=== PATIENT | female | born 1940 | race African-American/Black ===

== ENCOUNTER 2016-07-18 00:49 | Emergency (ER) | payer MEDICARE ==
[~2016-07-18] VITALS: Ht 170.2 cm; Wt 90.7 kg
[2016-07-18 02:22] LABS: BILIRUBIN,URINE NEGATIVE (NEG); GLUCOSE,URINE NEGATIVE (NEG); NITRITE,URINE POSITIVE (NEG); PH,URINE 6.5; PROTEIN,URINE 30 mg/dL (NEG-TRACE)
[2016-07-18 02:43] LABS: BACTERIA,URINE FEW /HPF (0-FEW); SQUAMOUS EPITHELIAL CELL,UR MANY /LPF; WBC,URINE TNTC /HPF (0-4)
[2016-07-18] MEDS ORDERED: CEFTRIAXONE 1GM IVPB FOR OMNI 50 ML IV ONE (02:45)
[2016-07-18] MEDS ORDERED: LEVO750T31 PO (02:58)
--- NOTE | 2016-07-18 02:58 | PHYS DOC ---
Past Medical History Past Medical History: Hypertension, Other Additional Past Medical Histor: Edema, poor historian, CELLULITIS Past Surgical History: Lumbar Laminectomy Alcohol Use: None Drug Use: None Adult General Chief Complaint Chief Complaint: ABDOMINAL PAIN HPI HPI Patient is a 75 year old female who presents with complaint of lower abdominal pain and dysuria. Patient states her symptoms started this morning and have been present throughout the day. Patient states that she feels she may have urinary tract infection as she had similar symptoms with her previous episode of urinary tract infection. Patient denies any fevers, chest pain, shortness of breath, or any other symptoms at this time. The patient stated that she wanted to come to the emergency department because she feels that she has urinary tract infection and she wanted to be evaluated and treated at this time. Review of Systems Review of Systems Constitutional: Denies fever or chills [] Eyes: Denies change in visual acuity, redness, or eye pain [] HENT: Denies nasal congestion or sore throat [] Respiratory: Denies cough or shortness of breath [] Cardiovascular: No additional information not addressed in HPI [] GI: Lower abdominal pain, denies nausea, vomiting, bloody stools or diarrhea [] : Dysuria [] Musculoskeletal: Denies back pain or joint pain [] Integument: Denies rash or skin lesions [] Neurologic: Denies headache, focal weakness or sensory changes [] Endocrine: Denies polyuria or polydipsia [] Current Medications Current Medications Current Medications Medications (Trade) Dose Ordered Sig/Kp Start Time Stop Time Status Last Admin Dose Admin Ceftriaxone Sodium (Rocephin 1gm Ivpb For Omni) 50 ml @ 100 mls/hr 1X ONCE 07/18/16 02:45 07/18/16 03:14 UNV Allergies Allergies Allergies Coded Allergies Type Severity Reaction Last Updated Verified Penicillins Allergy Intermediate 10/12/13 Yes Physical Exam Physical Exam Constitutional: Alert, afebrile, no acute distress. [] HENT: Normocephalic, atraumatic, bilateral external ears normal, oropharynx moist, no oral exudates, nose normal. [] Eyes: PERRLA, EOMI, conjunctiva normal, no discharge. [] Neck: Normal range of motion, no tenderness, supple, no stridor. [] Cardiovascular:Heart rate regular rhythm, no murmur [] Lungs & Thorax: Bilateral breath sounds clear to auscultation [] Abdomen: Bowel sounds normal, soft, no tenderness, no masses, no pulsatile masses. [] Skin: Warm, dry, no erythema, no rash. [] Back: No tenderness, no CVA tenderness. [] Extremities: No tenderness, no cyanosis, no clubbing, no edema. [] Neurologic: Alert and oriented X 3, normal motor function, normal sensory function, no focal deficits noted. [] Current Patient Data Vital Signs Vital Signs Date Time Temp Pulse Resp B/P Pulse Ox O2 Delivery O2 Flow Rate FiO2 07/18/16 00:50 99.0 76 20 122/75 94 Room Air 99.0 Lab Values Laboratory Tests Test 07/18/16 01:05 Urine Collection Type U cath Urine Color Yellow Urine Clarity Turbid Urine pH 6.5 Urine Specific [place] 1.015 Urine Protein 30mg/dL (NEG-TRACE) Urine Glucose (UA) Negativemg/dL (NEG) Urine Ketones (Stick) Negativemg/dL (NEG) Urine Blood Large (NEG) Urine Nitrite Positive (NEG) Urine Bilirubin Negative (NEG) Urine Urobilinogen Dipstick 1.0mg/dL (0.2 mg/dL) Urine Leukocyte Esterase Large (NEG) Urine RBC 1-2/HPF (0-2) Urine WBC Tntc/HPF (0-4) Urine Squamous Epithelial Cells Many/LPF Urine Bacteria Few/HPF (0-FEW) EKG EKG Not performed [] Radiology/Procedures Radiology/Procedures Not performed [] Course & Med Decision Making Course & Med Decision Making Pertinent Labs and Imaging studies reviewed. (See chart for details) Patient's vital signs are stable. The patient was found have evidence of urinary tract infection. Patient given a dose of Rocephin in the emergency department. Patient will be continued on a seven-day course of Levaquin for treatment and advised follow-up in 4-5 days a primary doctor if symptoms are not improving. Advised return emergency department for any worsening symptoms. Patient voiced understanding and in agreement with treatment plan. Dragon Disclaimer Dragon Disclaimer This electronic medical record was generated, in whole or in part, using a voice recognition dictation system. Departure Departure Impression: Primary Impression: Urinary tract infection Disposition: HOME, SELF-CARE Condition: IMPROVED Referrals: GALINA JOHNSON MD (PCP) Patient Instructions: Urinary Tract Infection Additional Instructions: Follow-up with your right [facility] doctor in 4-5 days. Return to the emergency department for any worsening symptoms. Scripts Levofloxacin (Levaquin)750 Mg Tablet1 Tab PO DAILY #7 TAB Prov:FANY NOYOLA MD 07/18/16 Problem Qualifiers Primary Impression: Urinary tract infection Urinary tract infection type: site unspecified Hematuria presence: without hematuria Qualified Code: N39.0 - Urinary tract infection, site not specified FANY NOYOLA MD Jul 18, 2016 02:58
[2016-07-18 03:00] VITALS: BP 131/63
--- NOTE | 2016-07-20 16:21 | VNOTE ---
CALL BACK NOTE CALL BACK Microbiology 07/18/16 Urine Culture - Final, Complete 07/18/16 Urine Culture Result 1 (EFREN) - Final, Complete 07/18/16 Antimicrobic Susceptibility - Final, Complete Patient was discharged on Levaquin, urine culture shows she is resistant to it, I attempted to call patient phone is out of service. We'll give information to the batch and furnace manager to contact patient ALAINA GORMAN CATIE Jul 20, 2016 16:21
== END 2016-07-18 03:41 | disposition home or self-care (01) ==
LOC: ER 00:49
DX: N39.0 Urinary tract infection, site not specified (principal); I10 Essential (primary) hypertension; Z88.0 Allergy status to penicillin
CPT/HCPCS: 81001; 87086; 87186; 96365; 99284; J0690

== ENCOUNTER 2017-05-25 09:55 | Emergency (ER) | payer MEDICARE, OTHER ==
[2017-05-25] MEDS: KETOROLAC 60 MG/2 ML INJ. IM ×2 (10:18)
[2017-05-25 10:53] LABS: INFLUENZA A PATIENT NEGATIVE (NEGATIVE); INFLUENZA B PATIENT NEGATIVE (NEGATIVE); OBC FLU VALID
== END 2017-05-25 12:10 | disposition home or self-care (01) ==
LOC: ER 09:55
DX: J06.9 Acute upper respiratory infection, unspecified (principal); I10 Essential (primary) hypertension; Z88.0 Allergy status to penicillin; Z91.041 Radiographic dye allergy status
CPT/HCPCS: 70450; 87804; 87804-59; 96372; 99285-25; J1885

== ENCOUNTER 2017-08-05 15:40 | Inpatient (IN) | payer MEDICARE, OTHER ==
[2017-08-05] MEDS ORDERED: VANCOMYCIN PER PHARMACY MC (16:00)
[2017-08-05] MEDS ORDERED: CEFEPIME HCL 2 GM in IV NORMAL SALINE 100ML 100 ML IV (16:00)
[2017-08-05] MEDS ORDERED: BISACODYL 5 MG TABLET.DR. PO (16:15)
[2017-08-05] MEDS ORDERED: BISACODYL 10 MG SUPP.RECT. PR (16:15)
[2017-08-05] MEDS ORDERED: MAGNESIUM HYDROXIDE 2,400 MG/30 ML ORAL.SUSP. PO ×2 (16:15)
[2017-08-05] MEDS ORDERED: PROCHLORPERAZINE 10 MG/2 ML VIAL. IV (16:15)
[2017-08-05] MEDS ORDERED: PROCHLORPERAZINE 25 MG SUPP.RECT. PR (16:15)
[2017-08-05] MEDS ORDERED: CALCIUM CARBONATE 500 MG TAB.CHEW PO (16:15)
[2017-08-05] MEDS ORDERED: CAFFEINE PO (16:15)
[2017-08-05] MEDS ORDERED: ONDANSETRON PF 4 MG/2 ML VIAL. IV (16:15)
[2017-08-05] MEDS ORDERED: MAG HYDROX/ALUMINUM HYD/SIMETH 30 ML ORAL.SUSP PO (16:15)
[2017-08-05] MEDS ORDERED: ASPIRIN PO (16:15)
[2017-08-05 16:18] LABS: BILIRUBIN,URINE NEGATIVE (NEG); CLARITY,URINE TURBID; COLOR,URINE YELLOW; GLUCOSE,URINE NEGATIVE (NEG); NITRITE,URINE POSITIVE (NEG); PROTEIN,URINE 30 mg/dL (NEG-TRACE); UROBILINOGEN,URINE 0.2 mg/dL (0.2 mg/dL)
[2017-08-05 16:21] LABS: ADD MAN DIFF? NO
[2017-08-05] MEDS: IV NORMAL SALINE 1000ML BAG 1,860 ML IV (16:25)
[2017-08-05] MEDS: CEFEPIME HCL IV Push 2 GM VIAL. IVP (16:26)
[2017-08-05] MEDS: VANCOMYCIN 2 GM in IV 1/2 NORMAL SALINE 500 ML IV (16:26)
[2017-08-05 16:29] LABS: BACTERIA,URINE MODERATE /HPF (0-FEW); HYALINE CASTS, URINE MODERATE /HPF; RBC,URINE FOBS /HPF (0-2); SQUAMOUS EPITHELIAL CELL,UR MOD /LPF; WBC,URINE TNTC /HPF (0-4)
[2017-08-05 16:32] LABS: INR 1.2 (0.8-1.1); PARTIAL THROMBOPLASTIN TIME 37 SEC (24-38); PROTHROMBIN TIME PATIENT 14.3 SEC (11.7-14.0)
[2017-08-05 16:33] LABS: ANION GAP 8 (6-14); BLOOD UREA NITROGEN 17 mg/dL (7-20); BUN/CREATININE RATIO 15 (6-20); CALCIUM 8.4 mg/dL (8.5-10.1); CARBON DIOXIDE 26 mmol/L (21-32); CHLORIDE 102 mmol/L (98-107); CREATININE 1.1 mg/dL (0.6-1.0); GFR 58.3; GLUCOSE 149 mg/dL (70-99); SODIUM 136 mmol/L (136-145)
[2017-08-05 16:34] LABS: BASO # 0.1 x10^3/uL (0.0-0.2); BASO % 1 % (0-3); EOS % 0 % (0-3); HEMATOCRIT 32.5 % (36.0-47.0); HEMOGLOBIN 10.5 g/dL (12.0-15.5); LYMPH # 1.6 x10^3/uL (1.0-4.8); LYMPH % 11 % (24-48); MEAN CORPUSCULAR HEMOGLOBIN 28 pg (25-35); MEAN CORPUSCULAR HGB CONC 32 g/dL (31-37); MEAN CORPUSCULAR VOLUME 87 fL (79-100); MONO # 1.5 x10^3/uL (0.0-1.1); MONO % 10 % (0-9); NEUT # 11.5 x10^3uL (1.8-7.7); NEUT % 79 % (31-73); PLATELET COUNT 301 x10^3/uL (140-400); RED BLOOD COUNT 3.76 x10^6/uL (3.50-5.40); RED CELL DISTRIBUTION WIDTH 17.2 % (11.5-14.5); WHITE BLOOD COUNT 14.7 x10^3/uL (4.0-11.0)
[2017-08-05 16:39] LABS: ALBUMIN/GLOBULIN RATIO 0.7 (1.0-1.7); ALK PHOS 130 U/L (46-116); ALT (SGPT) 17 U/L (14-59); AST (SGOT) 29 U/L (15-37); TOTAL BILIRUBIN 0.4 mg/dL (0.2-1.0); TOTAL PROTEIN 7.2 g/dL (6.4-8.2)
[2017-08-05 16:40] LABS: POTASSIUM 5.6 mmol/L (3.5-5.1)
[2017-08-05] MEDS: IV NORMAL SALINE 1000ML BAG 1,000 ML IV ×2 (16:45→17:18)
[2017-08-05 16:57] LABS: LACTIC ACID 1.5 mmol/L (0.4-2.0)
[2017-08-05] MEDS ORDERED: ZINC OXIDE 20% TOPICAL OINTMENT 28GM TUBE. TP (17:15)
[2017-08-05] MEDS: MORPHINE SULFATE 4 MG/ML DISP.SYRIN. IV (17:26)
[2017-08-05] MEDS: VANCOMYCIN PER PHARMACY MC (18:12)
[2017-08-05] MEDS ORDERED: ASA/APAP/CAFFEINE 250/250/65MG TABLET. PO (18:15)
[2017-08-05] MEDS: oxyCODONE IR 5 MG TABLET PO (19:36)
[2017-08-05] MEDS: ACETAMINOPHEN 325 MG TABLET. PO (19:41)
[2017-08-05] MEDS: CYCLOBENZAPRINE 10 MG TABLET. PO (20:59)
[2017-08-05] MEDS: ALPRAZolam 0.25 MG TABLET PO (20:59)
[2017-08-05] MEDS: GABAPENTIN 300 MG CAPSULE. PO (20:59)
[2017-08-05] MEDS: TAMSULOSIN 0.4 MG CAP.ER.24H. PO (20:59)
[2017-08-05] MEDS: ENOXAPARIN 40 MG/0.4 ML SYRINGE. SQ (20:59)
[2017-08-05] MEDS ORDERED: NON FORMULARY ITEM (Gabapentin 800 MG) PO (21:00)
[2017-08-06] MEDS: oxyCODONE IR 5 MG TABLET PO ×4 (00:49→17:01)
[2017-08-06] MEDS: POLYETHYLENE GLYCOL 3350 17 GM PACKET. PO (09:06)
[2017-08-06] MEDS: busPIRone 5 MG TABLET. PO (09:07)
[2017-08-06] MEDS: GABAPENTIN 300 MG CAPSULE. PO ×3 (09:07→20:49)
[2017-08-06] MEDS: FAMOTIDINE 20 MG TABLET. PO (09:08)
[2017-08-06] MEDS: SENNOSIDES/DOCUSATE 8.6/50MG TABLET. PO (09:08)
[2017-08-06] MEDS: FUROSEMIDE 40 MG TABLET. PO (09:08)
[2017-08-06] MEDS: MEROPENEM 1 GM in IV NORMAL SALINE 100ML 100 ML IV ×3 (09:09→20:55)
[2017-08-06] MEDS: VANCOMYCIN 1.5 GM in IV 1/2 NORMAL SALINE 500 ML IV (17:01)
[2017-08-06] MEDS: ACETAMINOPHEN 325 MG TABLET. PO (17:49)
[2017-08-06] MEDS ORDERED: IBUPROFEN 400 MG TABLET. PO (19:00)
[2017-08-06] MEDS: LACTOBACILLUS RHAMNOSUS GG 1 CAPSULE. PO (20:49)
[2017-08-06] MEDS: ALPRAZolam 0.25 MG TABLET PO (20:50)
[2017-08-06] MEDS: CYCLOBENZAPRINE 10 MG TABLET. PO (20:50)
[2017-08-06] MEDS: TAMSULOSIN 0.4 MG CAP.ER.24H. PO (20:50)
[2017-08-06] MEDS: ENOXAPARIN 40 MG/0.4 ML SYRINGE. SQ (20:54)
[2017-08-07] MEDS: ACETAMINOPHEN 325 MG TABLET. PO (03:58)
[2017-08-07] MEDS: MEROPENEM 1 GM in IV NORMAL SALINE 100ML 100 ML IV ×3 (05:29→23:59)
[2017-08-07] MEDS: oxyCODONE IR 5 MG TABLET PO ×4 (05:34→20:02)
[2017-08-07 09:29] LABS: ADD MAN DIFF? YES; BASO # 0.1 x10^3/uL (0.0-0.2); BASO % 1 % (0-3); EOS # 0.1 x10^3/uL (0.0-0.7); EOS % 1 % (0-3); HEMATOCRIT 26.8 % (36.0-47.0); LYMPH # 2.4 x10^3/uL (1.0-4.8); LYMPH % 17 % (24-48); MEAN CORPUSCULAR HEMOGLOBIN 29 pg (25-35); MEAN CORPUSCULAR HGB CONC 34 g/dL (31-37); MEAN CORPUSCULAR VOLUME 86 fL (79-100); MONO # 2.2 x10^3/uL (0.0-1.1); MONO % 15 % (0-9); NEUT # 9.6 x10^3uL (1.8-7.7); NEUT % 67 % (31-73); PLATELET COUNT 216 x10^3/uL (140-400); RED BLOOD COUNT 3.12 x10^6/uL (3.50-5.40); RED CELL DISTRIBUTION WIDTH 17.4 % (11.5-14.5); WHITE BLOOD COUNT 14.3 x10^3/uL (4.0-11.0)
[2017-08-07 09:36] LABS: ANION GAP 7 (6-14); BLOOD UREA NITROGEN 19 mg/dL (7-20); CALCIUM 7.7 mg/dL (8.5-10.1); CARBON DIOXIDE 28 mmol/L (21-32); CHLORIDE 104 mmol/L (98-107); CREATININE 1.1 mg/dL (0.6-1.0); GFR 58.3; GLUCOSE 107 mg/dL (70-99); POTASSIUM 3.6 mmol/L (3.5-5.1); SODIUM 139 mmol/L (136-145)
[2017-08-07] MEDS: FAMOTIDINE 20 MG TABLET. PO (09:52)
[2017-08-07] MEDS: SENNOSIDES/DOCUSATE 8.6/50MG TABLET. PO (09:52)
[2017-08-07] MEDS: busPIRone 5 MG TABLET. PO (09:52)
[2017-08-07] MEDS: GABAPENTIN 300 MG CAPSULE. PO ×2 (09:53→15:58)
[2017-08-07] MEDS: LACTOBACILLUS RHAMNOSUS GG 1 CAPSULE. PO (09:53)
[2017-08-07] MEDS: POLYETHYLENE GLYCOL 3350 17 GM PACKET. PO (09:53)
[2017-08-07] MEDS: FUROSEMIDE 40 MG TABLET. PO (09:53)
[2017-08-07] MEDS: VANCOMYCIN PER PHARMACY MC ×2 (11:03→16:38)
[2017-08-07 12:35] LABS: % BANDS 4 % (0-9); % LYMPHS 23 % (24-48); % MONOS 9 % (0-10); % SEGS 64 % (35-66)
[2017-08-07 12:36] LABS: ANISOCYTOSIS SLIGHT; PLT ESTIMATE ADEQUATE (ADEQUATE)
[2017-08-07 16:27] LABS: VANC TR 15.5 mcg/mL (10.0-20.0)
[2017-08-07] MEDS: VANCOMYCIN 1.5 GM in IV 1/2 NORMAL SALINE 500 ML IV (16:47)
[2017-08-07] MEDS: ALPRAZolam 0.25 MG TABLET PO (20:06)
[2017-08-08] MEDS: TAMSULOSIN 0.4 MG CAP.ER.24H. PO ×2 (00:01→21:21)
[2017-08-08] MEDS: CYCLOBENZAPRINE 10 MG TABLET. PO ×2 (00:02→21:22)
[2017-08-08] MEDS: GABAPENTIN 300 MG CAPSULE. PO ×4 (00:02→21:21)
[2017-08-08] MEDS: LACTOBACILLUS RHAMNOSUS GG 1 CAPSULE. PO ×3 (00:02→21:21)
[2017-08-08] MEDS: ENOXAPARIN 40 MG/0.4 ML SYRINGE. SQ ×2 (00:04→21:24)
[2017-08-08] MEDS: oxyCODONE IR 5 MG TABLET PO ×4 (05:27→17:21)
[2017-08-08] MEDS: MEROPENEM 1 GM in IV NORMAL SALINE 100ML 100 ML IV ×2 (05:35→11:46)
[2017-08-08 05:43] LABS: ANION GAP 9 (6-14); BLOOD UREA NITROGEN 16 mg/dL (7-20); CARBON DIOXIDE 25 mmol/L (21-32); CHLORIDE 103 mmol/L (98-107); CREATININE 0.9 mg/dL (0.6-1.0); GFR 73.5; GLUCOSE 101 mg/dL (70-99); POTASSIUM 3.7 mmol/L (3.5-5.1); SODIUM 137 mmol/L (136-145)
[2017-08-08] MEDS: FUROSEMIDE 40 MG TABLET. PO (08:10)
[2017-08-08] MEDS: POLYETHYLENE GLYCOL 3350 17 GM PACKET. PO (08:10)
[2017-08-08] MEDS: busPIRone 5 MG TABLET. PO (08:10)
[2017-08-08] MEDS: SENNOSIDES/DOCUSATE 8.6/50MG TABLET. PO (08:10)
[2017-08-08] MEDS: FAMOTIDINE 20 MG TABLET. PO (08:10)
[2017-08-08 10:42] LABS: ADD MAN DIFF? NO
[2017-08-08 10:54] LABS: BASO % 0 % (0-3); EOS # 0.3 x10^3/uL (0.0-0.7); EOS % 3 % (0-3); HEMATOCRIT 27.2 % (36.0-47.0); LYMPH # 2.5 x10^3/uL (1.0-4.8); LYMPH % 24 % (24-48); MEAN CORPUSCULAR HEMOGLOBIN 28 pg (25-35); MEAN CORPUSCULAR HGB CONC 33 g/dL (31-37); MEAN CORPUSCULAR VOLUME 86 fL (79-100); MONO # 1.7 x10^3/uL (0.0-1.1); MONO % 16 % (0-9); NEUT # 5.8 x10^3uL (1.8-7.7); NEUT % 56 % (31-73); PLATELET COUNT 217 x10^3/uL (140-400); RED BLOOD COUNT 3.18 x10^6/uL (3.50-5.40); RED CELL DISTRIBUTION WIDTH 17.4 % (11.5-14.5); WHITE BLOOD COUNT 10.3 x10^3/uL (4.0-11.0)
[2017-08-08] MEDS ORDERED: MAGNESIUM HYDROXIDE 2,400 MG/30 ML ORAL.SUSP. PO (11:00)
[2017-08-08] MEDS: MAGNESIUM HYDROXIDE 2,400 MG/30 ML ORAL.SUSP. PO (11:45)
[2017-08-08] MEDS: DOCUSATE SODIUM 100 MG CAPSULE. PO (11:46)
[2017-08-08] MEDS: cefTRIAXone IV Push 1 GM VIAL. IVP (12:23)
[2017-08-08] MEDS: ALPRAZolam 0.25 MG TABLET PO (21:22)
[2017-08-09] MEDS: oxyCODONE IR 5 MG TABLET PO ×5 (06:00→17:30)
[2017-08-09] MEDS: POLYETHYLENE GLYCOL 3350 17 GM PACKET. PO (08:51)
[2017-08-09] MEDS: DOCUSATE SODIUM 100 MG CAPSULE. PO (08:54)
[2017-08-09] MEDS: LACTOBACILLUS RHAMNOSUS GG 1 CAPSULE. PO ×2 (08:54→21:30)
[2017-08-09] MEDS: GABAPENTIN 300 MG CAPSULE. PO ×3 (08:54→21:29)
[2017-08-09] MEDS: FAMOTIDINE 20 MG TABLET. PO (08:54)
[2017-08-09] MEDS: FUROSEMIDE 40 MG TABLET. PO (08:54)
[2017-08-09] MEDS: SENNOSIDES/DOCUSATE 8.6/50MG TABLET. PO (08:54)
[2017-08-09] MEDS: busPIRone 5 MG TABLET. PO (08:54)
[2017-08-09] MEDS ORDERED: POLYETHYLENE GLYCOL 3350 17 GM PACKET. PO (09:00)
[2017-08-09] MEDS ORDERED: CONTRAST GIVEN MC (11:30)
[2017-08-09] MEDS: IOHEXOL 300 MG/ML 100ML VIAL. IV (11:46)
[2017-08-09] MEDS: BENZOCAINE/MENTHOL LOZENGE. PO (13:24)
[2017-08-09] MEDS: cefTRIAXone IV Push 1 GM VIAL. IVP (13:26)
[2017-08-09] MEDS: TAMSULOSIN 0.4 MG CAP.ER.24H. PO (21:29)
[2017-08-09] MEDS: ALPRAZolam 0.25 MG TABLET PO (21:29)
[2017-08-09] MEDS: CYCLOBENZAPRINE 10 MG TABLET. PO (21:30)
[2017-08-09] MEDS: ENOXAPARIN 40 MG/0.4 ML SYRINGE. SQ (21:32)
[2017-08-10 03:54] LABS: HEMATOCRIT 29.3 % (36.0-47.0); HEMOGLOBIN 9.9 g/dL (12.0-15.5); MEAN CORPUSCULAR HEMOGLOBIN 29 pg (25-35); MEAN CORPUSCULAR HGB CONC 34 g/dL (31-37); MEAN CORPUSCULAR VOLUME 85 fL (79-100); PLATELET COUNT 268 x10^3/uL (140-400); RED BLOOD COUNT 3.44 x10^6/uL (3.50-5.40); RED CELL DISTRIBUTION WIDTH 17.3 % (11.5-14.5); WHITE BLOOD COUNT 9.6 x10^3/uL (4.0-11.0)
[2017-08-10 05:27] LABS: ALBUMIN 2.5 g/dL (3.4-5.0); ALBUMIN/GLOBULIN RATIO 0.6 (1.0-1.7); ALK PHOS 90 U/L (46-116); ALT (SGPT) 17 U/L (14-59); ANION GAP 9 (6-14); AST (SGOT) 13 U/L (15-37); BLOOD UREA NITROGEN 13 mg/dL (7-20); BUN/CREATININE RATIO 14 (6-20); CALCIUM 8.5 mg/dL (8.5-10.1); CARBON DIOXIDE 29 mmol/L (21-32); CHLORIDE 104 mmol/L (98-107); CREATININE 0.9 mg/dL (0.6-1.0); GFR 73.5; GLUCOSE 102 mg/dL (70-99); POTASSIUM 3.4 mmol/L (3.5-5.1); SODIUM 142 mmol/L (136-145); TOTAL BILIRUBIN 0.3 mg/dL (0.2-1.0)
[2017-08-10] MEDS: oxyCODONE IR 5 MG TABLET PO ×5 (06:00→23:55)
[2017-08-10] MEDS: DOCUSATE SODIUM 100 MG CAPSULE. PO (08:48)
[2017-08-10] MEDS: FUROSEMIDE 40 MG TABLET. PO (08:48)
[2017-08-10] MEDS: SENNOSIDES/DOCUSATE 8.6/50MG TABLET. PO (08:48)
[2017-08-10] MEDS: FAMOTIDINE 20 MG TABLET. PO (08:48)
[2017-08-10] MEDS: busPIRone 5 MG TABLET. PO (08:48)
[2017-08-10] MEDS: POLYETHYLENE GLYCOL 3350 17 GM PACKET. PO ×2 (08:49→20:13)
[2017-08-10] MEDS: GABAPENTIN 300 MG CAPSULE. PO ×3 (08:49→20:14)
[2017-08-10] MEDS: LACTOBACILLUS RHAMNOSUS GG 1 CAPSULE. PO ×2 (08:49→20:12)
[2017-08-10 11:08] LABS: BILIRUBIN,URINE NEGATIVE (NEG); CLARITY,URINE CLOUDY; COLOR,URINE YELLOW; GLUCOSE,URINE NEGATIVE (NEG); NITRITE,URINE NEGATIVE (NEG); PROTEIN,URINE NEGATIVE (NEG-TRACE)
[2017-08-10 11:34] LABS: SQUAMOUS EPITHELIAL CELL,UR MANY /LPF
[2017-08-10 11:35] LABS: WBC,URINE >40 /HPF (0-4)
[2017-08-10 11:37] LABS: BACTERIA,URINE FEW /HPF (0-FEW)
[2017-08-10] MEDS: cefTRIAXone IV Push 1 GM VIAL. IVP (13:54)
[2017-08-10] MEDS: IBUPROFEN 800 MG TABLET. PO (13:58)
[2017-08-10 14:01] LABS: RETIC COUNT 0.3 % (0.5-2.5)
[2017-08-10 14:01] LABS: % SAT IRON 12 % (15-34); IRON,SERUM 17 ug/dL (50-170)
[2017-08-10 14:44] LABS: VITAMIN-B12 332 pg/mL (247-911)
[2017-08-10 14:44] LABS: FOLATE 5.52 ng/ml (3.2-20.0)
[2017-08-10] MEDS: LUBIPROSTONE 8 MCG CAPSULE PO (17:04)
[2017-08-10] MEDS: POTASSIUM CHLORIDE 20 MEQ TABLET.ER. PO (17:04)
[2017-08-10] MEDS: ALPRAZolam 0.25 MG TABLET PO (20:12)
[2017-08-10] MEDS: TAMSULOSIN 0.4 MG CAP.ER.24H. PO (20:13)
[2017-08-10] MEDS: CYCLOBENZAPRINE 10 MG TABLET. PO (20:13)
[2017-08-10] MEDS: ENOXAPARIN 40 MG/0.4 ML SYRINGE. SQ (20:14)
[2017-08-11] MEDS: oxyCODONE IR 5 MG TABLET PO ×2 (04:25→11:56)
[2017-08-11] MEDS ORDERED: oxyCODONE IR 5 MG TABLET (05:30)
[2017-08-11] MEDS: LUBIPROSTONE 8 MCG CAPSULE PO (08:27)
[2017-08-11] MEDS: PANTOPRAZOLE 40 MG TABLET.DR. PO (08:28)
[2017-08-11] MEDS: IBUPROFEN 800 MG TABLET. PO (08:28)
[2017-08-11] MEDS: LACTOBACILLUS RHAMNOSUS GG 1 CAPSULE. PO (08:28)
[2017-08-11] MEDS: busPIRone 5 MG TABLET. PO (08:28)
[2017-08-11] MEDS: SENNOSIDES/DOCUSATE 8.6/50MG TABLET. PO (08:32)
[2017-08-11] MEDS: GABAPENTIN 300 MG CAPSULE. PO ×2 (08:32→13:43)
[2017-08-11] MEDS: DOCUSATE SODIUM 100 MG CAPSULE. PO (08:32)
[2017-08-11] MEDS: POLYETHYLENE GLYCOL 3350 17 GM PACKET. PO (08:32)
[2017-08-11] MEDS: FUROSEMIDE 40 MG TABLET. PO (08:32)
[2017-08-11 09:54] LABS: ANION GAP 8 (6-14); BLOOD UREA NITROGEN 14 mg/dL (7-20); CALCIUM 8.7 mg/dL (8.5-10.1); CARBON DIOXIDE 29 mmol/L (21-32); CHLORIDE 104 mmol/L (98-107); CREATININE 0.8 mg/dL (0.6-1.0); GFR 84.2; GLUCOSE 116 mg/dL (70-99); POTASSIUM 3.7 mmol/L (3.5-5.1); SODIUM 141 mmol/L (136-145)
[2017-08-11] MEDS: cefTRIAXone IV Push 1 GM VIAL. IVP (13:41)
[2017-08-12] MEDS ORDERED: CEFPODOXIME PROXETIL 100 MG TABLET. PO (09:00)
== END 2017-08-11 16:00 | disposition home or self-care (01) | DRG 871 ==
LOC: 5 SOUTH 08-09 12:59 → ER 15:40 → 5 SOUTH 16:18
DX: A41.9 Sepsis, unspecified organism (principal); J96.20 Acute and chronic respiratory failure, unspecified whether with hypoxia or hypercapnia; N13.30 Unspecified hydronephrosis; N30.91 Cystitis, unspecified with hematuria; D64.9 Anemia, unspecified; B96.20 Unspecified Escherichia coli [E. coli] as the cause of diseases classified elsewhere; F17.210 Nicotine dependence, cigarettes, uncomplicated; G89.29 Other chronic pain; I10 Essential (primary) hypertension; I25.10 Atherosclerotic heart disease of native coronary artery without angina pectoris; K21.9 Gastro-esophageal reflux disease without esophagitis; Z79.891 Long term (current) use of opiate analgesic; Z82.49 Family history of ischemic heart disease and other diseases of the circulatory system; Z83.71 Family history of colonic polyps; Z86.14 Personal history of Methicillin resistant Staphylococcus aureus infection; Z87.440 Personal history of urinary (tract) infections; Z88.0 Allergy status to penicillin; F32.9 Major depressive disorder, single episode, unspecified; F41.9 Anxiety disorder, unspecified; M19.90 Unspecified osteoarthritis, unspecified site; K56.41 Fecal impaction; R33.9 Retention of urine, unspecified; Z71.89 Other specified counseling
CPT/HCPCS: 36415; 71045; 71260; 76770; 80048; 80053; 80202; 81001; 82607; 82746; 83540; 83550; 83605; 85007; 85025; 85027; 85045; 85610; 85730; 87040; 87086; 87186; 96365; 96375; 99291; 99291-25; J0692; J0696; J1650; J2185; J2270; J3370; J7030; Q9967

== ENCOUNTER 2018-01-23 15:17 | Inpatient (IN) | payer MEDICARE, OTHER ==
[~2018-01-23] VITALS: Ht 170.2 cm; Wt 87.1 kg
[~2018-01-23 15:17] MED LIST: ALPR0.25 PO; ASPI-493 PO; BISA-42 PR; BUSP5TAB PO; CEFP100T PO; CYCL5TAB PO; FURO40TA4 PO; GABA-585 PO; GABA600T2 PO; GABA800T2 PO; LACT1CAP19 PO; LEVO750T31 PO; MAGN400O7 PO; MENT3.5O TP; NITR100C62 PO; OXYC15TA PO; POLY17PO29 PO; RANI150T21 PO; SENN1TAB8 PO; TAMS0.4C2 PO
[2018-01-23] MEDS ORDERED: IV NORMAL SALINE 1000ML BAG 1,000 ML IV SCH (15:54)
[2018-01-23] MEDS ORDERED: ACETAMINOPHEN 500 MG TABLET PO ONE (16:00)
[2018-01-23 16:10] LABS: CALCIUM 8.8 mg/dL (8.5-10.1); CREATININE 1.2 mg/dL (0.6-1.0); GFR 52.6; POTASSIUM 3.7 mmol/L (3.5-5.1)
[2018-01-23 16:12] LABS: BASO # 0.1 x10^3/uL (0.0-0.2); BASO % 0 % (0-3); EOS % 0 % (0-3); HEMATOCRIT 37.3 % (36.0-47.0); HEMOGLOBIN 12.4 g/dL (12.0-15.5); LYMPH # 1.7 x10^3/uL (1.0-4.8); LYMPH % 11 % (24-48); MEAN CORPUSCULAR HEMOGLOBIN 27 pg (25-35); MEAN CORPUSCULAR HGB CONC 33 g/dL (31-37); MEAN CORPUSCULAR VOLUME 82 fL (79-100); MONO # 1.8 x10^3/uL (0.0-1.1); MONO % 11 % (0-9); NEUT # 12.5 x10^3uL (1.8-7.7); NEUT % 78 % (31-73); PLATELET COUNT 265 x10^3/uL (140-400); RED BLOOD COUNT 4.54 x10^6/uL (3.50-5.40); RED CELL DISTRIBUTION WIDTH 19.2 % (11.5-14.5); WHITE BLOOD COUNT 16.1 x10^3/uL (4.0-11.0)
[2018-01-23 16:12] LABS: BILIRUBIN,URINE NEGATIVE (NEG); CLARITY,URINE TURBID; COLOR,URINE YELLOW; NITRITE,URINE POSITIVE (NEG); PH,URINE 5.5; PROTEIN,URINE 30 mg/dL (NEG-TRACE)
--- NOTE | 2018-01-23 16:14 | PHYS DOC ---
Past Medical History Past Medical History: Anxiety, Arthritis, Constipation, Depression, GERD, Hypertension, Other Additional Past Medical Histor: Edema, chronic pain, CELLULITIS,hemorrhoids, pressure ulcer sacral stage 2 Past Surgical History: Lumbar Laminectomy Alcohol Use: None Drug Use: None Adult General HPI HPI Patient is a 77-year-old female who presents to the emergency department for evaluation, from her longterm. According to the nursing facility the patient has been less conversive than normal, and was found to have a fever of 103. This is confirmed upon arrival to the emergency department. The patient denies any pain. She does have a history of UTIs. She denies any headache, or neck pain. She is oriented to person, place, but disoriented to time. She is normally nonambulatory. She does have an ulcer on her right heel which has some malodorous drainage, as well as dressed sacral decubitus ulcer. Her urine is also foul-smelling, according to the nurse to catheterize the patient upon arrival. The patient has not had any cough or shortness of breath. She has not had any chest pain, nausea, vomiting, or diarrhea. There've been no reports of black or bloody stools. There are no alleviating or exacerbating factors to the patient's symptoms. Review of Systems Review of Systems Constitutional: Patient reports fever, decreased mental status according to the nursing facility[] Eyes: Denies change in visual acuity, redness, or eye pain [] HENT: Denies nasal congestion or sore throat [] Respiratory: Denies cough or shortness of breath [] Cardiovascular:The patient denies any shortness of breath, chest pain, palpitations, or orthopnea [] GI: Denies abdominal pain, nausea, vomiting, bloody stools or diarrhea [] : Denies dysuria or hematuria [] Musculoskeletal: Denies back pain or joint pain [] Integument: Denies rash or skin lesions, except as noted in the history of present illness [] Neurologic: Denies headache, new focal weakness or sensory changes [] Endocrine: Denies polyuria or polydipsia [] All other systems were reviewed and found to be within normal limits, except as documented in this note. Current Medications Current Medications Current Medications Medications (Trade) Dose Ordered Sig/Kp Start Time Stop Time Status Last Admin Dose Admin Acetaminophen (Tylenol) 1,000 mg 1X ONCE 01/23/18 16:00 01/23/18 16:01 DC 01/23/18 16:25 1,000 MG Ciprofloxacin/ Dextrose 200 ml @ 200 mls/hr 1X ONCE 01/23/18 16:15 01/23/18 17:14 01/23/18 16:26 200 MLS/HR Meropenem 1 gm/ Sodium Chloride 100 ml @ 200 mls/hr 1X ONCE 01/23/18 16:15 01/23/18 16:44 DC Sodium Chloride 1,000 ml @ 100 mls/hr Q10H 01/23/18 15:54 01/24/18 01:53 01/23/18 16:25 100 MLS/HR Vancomycin HCl 250 ml @ 250 mls/hr 1X ONCE 01/23/18 16:15 01/23/18 17:14 UNV Vancomycin HCl 2 gm/Sodium Chloride 500 ml @ 250 mls/hr 1X ONCE 01/23/18 16:15 01/23/18 18:14 Allergies Allergies Allergies Coded Allergies Type Severity Reaction Last Updated Verified Penicillins Allergy Intermediate HAS TOLERATED CEFTRIAXONE 08/05/17 Yes I S O L A T I O N *CONTACT* Allergy Unknown 07/21/16 Yes Physical Exam Physical Exam PHYSICAL EXAM: CONSTITUTIONAL: Well developed, well nourished HEAD: normocephalic, atraumatic EENT: PERRL, EOMI. Conjunctivae normal color, sclerae non-icteric; moist mucous membranes. NECK: Supple, non-tender; no meningismus. LUNGS: Lungs CTA, breathing even and unlabored. Normal air movement. HEART: Regular rate and rhythm, no murmur CHEST: No deformity; non-tender ABDOMEN: The abdomen is soft, and non-tender, no masses or bruits. EXTREM: Normal ROM; no deformity, no calf tenderness. Normal pulses palpable in all extremities. There is 2+ bilateral pitting pedal edema. SKIN: There is a half dollar sized decubitus ulcer on the right medial/inferior heel. There is malodorous discharge/exudate present. There is also a stage I decubitus ulcer on the tongue, which is dressed. No other rash; no diaphoresis NEURO: Alert; normal speech and cognition; CN's grossly intact; upper extremity strength grossly intact without focal deficit. There is significant weakness to the lower extremities bilaterally. The patient states she is not ambulatory normally. BACK: No CVA TTP. Current Patient Data Vital Signs Vital Signs Date Time Temp Pulse Resp B/P (MAP) Pulse Ox O2 Delivery O2 Flow Rate FiO2 01/23/18 15:17 103.1 106 20 136/68 (90) 96 Room Air 103.1 Lab Values Laboratory Tests Test 01/23/18 15:35 01/23/18 15:50 Urine Collection Type U cath Urine Color Yellow Urine Clarity Turbid Urine pH 5.5 Urine Specific [place] 1.015 Urine Protein 30 mg/dL (NEG-TRACE) Urine Glucose (UA) Negative mg/dL (NEG) Urine Ketones (Stick) Negative mg/dL (NEG) Urine Blood Moderate (NEG) Urine Nitrite Positive (NEG) Urine Bilirubin Negative (NEG) Urine Urobilinogen Dipstick 1.0 mg/dL (0.2 mg/dL) Urine Leukocyte Esterase Large (NEG) Urine RBC 1-2 /HPF (0-2) Urine WBC Tntc /HPF (0-4) Urine Squamous Epithelial Cells Few /LPF Urine Bacteria Many /HPF (0-FEW) Lactic Acid Level 1.0 mmol/L (0.4-2.0) White Blood Count 16.1 x10^3/uL (4.0-11.0) H Red Blood Count 4.54 x10^6/uL (3.50-5.40) Hemoglobin 12.4 g/dL (12.0-15.5) Hematocrit 37.3 % (36.0-47.0) Mean Corpuscular Volume 82 fL (79-100) Mean Corpuscular Hemoglobin 27 pg (25-35) Mean Corpuscular Hemoglobin Concent 33 g/dL (31-37) Red Cell Distribution Width 19.2 % (11.5-14.5) H Platelet Count 265 x10^3/uL (140-400) Neutrophils (%) (Auto) 78 % (31-73) H Lymphocytes (%) (Auto) 11 % (24-48) L Monocytes (%) (Auto) 11 % (0-9) H Eosinophils (%) (Auto) 0 % (0-3) Basophils (%) (Auto) 0 % (0-3) Neutrophils # (Auto) 12.5 x10^3uL (1.8-7.7) H Lymphocytes # (Auto) 1.7 x10^3/uL (1.0-4.8) Monocytes # (Auto) 1.8 x10^3/uL (0.0-1.1) H Eosinophils # (Auto) 0.0 x10^3/uL (0.0-0.7) Basophils # (Auto) 0.1 x10^3/uL (0.0-0.2) Sodium Level 141 mmol/L (136-145) Potassium Level 3.7 mmol/L (3.5-5.1) Chloride Level 102 mmol/L (98-107) Carbon Dioxide Level 28 mmol/L (21-32) Anion Gap 11 (6-14) Blood Urea Nitrogen 15 mg/dL (7-20) Creatinine 1.2 mg/dL (0.6-1.0) H Estimated GFR (Cockcroft-Gault) 52.6 BUN/Creatinine Ratio 13 (6-20) Glucose Level 119 mg/dL (70-99) H Calcium Level 8.8 mg/dL (8.5-10.1) Total Bilirubin 0.5 mg/dL (0.2-1.0) Aspartate Amino Transferase (AST) 13 U/L (15-37) L Alanine Aminotransferase (ALT) 13 U/L (14-59) L Alkaline Phosphatase 139 U/L (46-116) H Total Protein 8.1 g/dL (6.4-8.2) Albumin 3.6 g/dL (3.4-5.0) Albumin/Globulin Ratio 0.8 (1.0-1.7) L Influenza Type A Antigen Negative (NEGATIVE) Influenza Type B Antigen Negative (NEGATIVE) Laboratory Tests 01/23/18 15:50 Laboratory Tests 01/23/18 15:50 EKG EKG [Normal sinus rhythm at a rate of 97 beats for minute, left axis deviation, normal intervals. There are no acute ischemic ST/T changes.] Radiology/Procedures Radiology/Procedures [PROCEDURE: PORTABLE CHEST 1V PORTABLE CHEST 1V Clinical Indication: FEVER, AMS Comparison: AP chest August 09, 2017. Findings: Atherosclerotic thoracic aorta. Cardiac size normal. Stable mild scarring in the lung bases. Lungs are otherwise clear. There is no pneumothorax. No pleural effusion is appreciated. Degenerative arthropathy of the shoulders. There is posterior fusion hardware of the cervical thoracic spine. IMPRESSION: No acute cardiopulmonary process. ] Course & Med Decision Making Course & Med Decision Making Pertinent Labs and Imaging studies reviewed. (See chart for details) [5:05 PM:The patient's condition remains stable. I spoke with the hospitalist , who accepted the patient to the hospital for further evaluation and treatment. Antibiotic coverage selected initially empirically, to cover for the possibility of pseudomonal infection on the heel.] Dragon Disclaimer Dragon Disclaimer This electronic medical record was generated, in whole or in part, using a voice recognition dictation system. Departure Departure Impression: Primary Impression: UTI (urinary tract infection) Additional Impressions: Sepsis Decubitus ulcer Disposition: ADMITTED INPATIENT Admitting Physician: Other (Riffel) Condition: STABLE Referrals: GALINA JOHNSON MD (PCP) Problem Qualifiers PAULINO SINGH MD Jan 23, 2018 16:14
[2018-01-23] MEDS ORDERED: CIPROFLOXACIN 400MG PREMIX 200 ML IV ONE (16:15)
[2018-01-23] MEDS ORDERED: MEROPENEM 1 GM in IV NORMAL SALINE 100ML 100 ML IV ONE (16:15)
[2018-01-23] MEDS ORDERED: VANCOMYCIN 2 GM in IV NORMAL SALINE 500ML BAG 500 ML IV ONE (16:15)
[2018-01-23] MEDS ORDERED: VANCOMYCIN 1GM IVPB FOR OMNI 250 ML IV ONE (16:15)
[2018-01-23 16:17] LABS: ALBUMIN 3.6 g/dL (3.4-5.0); ALBUMIN/GLOBULIN RATIO 0.8 (1.0-1.7); TOTAL BILIRUBIN 0.5 mg/dL (0.2-1.0); TOTAL PROTEIN 8.1 g/dL (6.4-8.2)
[2018-01-23 16:22] LABS: BACTERIA,URINE MANY /HPF (0-FEW); SQUAMOUS EPITHELIAL CELL,UR FEW /LPF; WBC,URINE TNTC /HPF (0-4)
[2018-01-23 16:25] LABS: INFLUENZA A PATIENT NEGATIVE (NEGATIVE); INFLUENZA B PATIENT NEGATIVE (NEGATIVE)
--- NOTE | 2018-01-23 16:59 | RAD ---
PORTABLE CHEST 1V Clinical Indication: FEVER, AMS Comparison: AP chest August 09, 2017. Findings: Atherosclerotic thoracic aorta. Cardiac size normal. Stable mild scarring in the lung bases. Lungs are otherwise clear. There is no pneumothorax. No pleural effusion is appreciated. Degenerative arthropathy of the shoulders. There is posterior fusion hardware of the cervical thoracic spine. IMPRESSION: No acute cardiopulmonary process. Electronically signed by: Gonzalo Diaz MD (01/23/2018 4:55 PM) [id number]
[2018-01-23 19:00] VITALS: BP 86/51
[2018-01-23] MEDS: traMADol 50 MG TABLET PO PRN (19:49)
[2018-01-23] MEDS ORDERED: IV RINGERS,LACTATED 1000ML 1,000 ML IV ONE (20:00)
[2018-01-23] MEDS: IV RINGERS,LACTATED 1000ML 1,000 ML IV SCH (21:27)
[2018-01-23 21:33] VITALS: BP 146/71
--- NOTE | 2018-01-23 22:43 | PDOC1 ---
History and Physical Date of Admission Date of Admission DATE: 01/23/18 TIME: 22:21 Identification/Chief Complaint Chief Complaint Fever Altered mental status Right heel ulcer Sacral decubitus ulcer Dysuria Source Source: Chart review, Patient History of Present Illness History of Present Illness 77-year-old female w/ PMHx mild dementia, mild COPD who presents to the emergency department from SNF. She has been somnolent and has a fever of 103. The patient denies any pain. She does have a history of UTIs and has LE, nitrites, blood and bacteria in UA in the ED. She denies any headache, or neck pain. She is oriented to person, place, but disoriented to time. Has been nonambulatory. ED staff noted an ulcer on her right heel which has some malodorous drainage, as well as dressed sacral decubitus ulcer. Denies cough or shortness of breath and CXR is nonspecific but she does require 2L O2 for desaturations into the 80s on room air. Her rapid influenza test was negative. She was noted with WBC 16.1, fever 103.1F, HR 106bpm. Lactate was 1 after IVF in the ED. She has not had any chest pain, nausea, vomiting, or diarrhea. There've been no reports of black or bloody stools. There are no alleviating or exacerbating factors to the patient's symptoms. She is admitted for sepsis, likely from right foot ulcer and UTI. Past Medical History Cardiovascular: HTN Pulmonary: No pertinent hx GI: No pertinent hx Heme/Onc: No pertinent hx Hepatobiliary: No pertinent hx Psych: No pertinent hx Rheumatologic: No pertinent hx, Other Infectious disease: Other Renal/: UTI Endocrine: No pertinent hx Past Surgical History Past Surgical History: No pertinent history Family History Family History: Hypertension Social History ALCOHOL: rare Drugs: None Current Problem List Problem List Problems Medical Problems: (1) Decubitus ulcer Status: Acute (2) Sepsis Status: Acute Current Medications Current Medications Current Medications Acetaminophen (Tylenol) 1,000 mg 1X ONCE PO Last administered on 01/23/18at 16 :25; Start 01/23/18 at 16:00; Stop 01/23/18 at 16:01; Status DC Sodium Chloride 1,000 ml @ 100 mls/hr Q10H IV Last administered on 01/23/18at 16:25; Start 01/23/18 at 15:54; Stop 01/23/18 at 19:50; Status DC Ciprofloxacin/ Dextrose 200 ml @ 200 mls/hr Q12HR IV ; Start 01/24/18 at 06:00 Meropenem 1 gm/ Sodium Chloride 100 ml @ 200 mls/hr Q12HR IV ; Start 01/24/18 at 06:00 Vancomycin HCl 250 ml @ 250 mls/hr 1X ONCE IV ; Start 01/23/18 at 16:15; Stop 01/23/18 at 17:14; Status UNV Ciprofloxacin/ Dextrose 200 ml @ 200 mls/hr 1X ONCE IV Last administered on 01/23/18at 16:26; Start 01/23/18 at 16:15; Stop 01/23/18 at 17:14; Status DC Meropenem 1 gm/ Sodium Chloride 100 ml @ 200 mls/hr 1X ONCE IV Last administered on 01/23/18at 17:45; Start 01/23/18 at 16:15; Stop 01/23/18 at 16 :44; Status DC Vancomycin HCl 2 gm/Sodium Chloride 500 ml @ 250 mls/hr 1X ONCE IV Last administered on 01/23/18at 18:47; Start 01/23/18 at 16:15; Stop 01/23/18 at 18 :14; Status DC Acetaminophen (Tylenol) 650 mg PRN Q6HRS PRN PO PAIN; Start 01/23/18 at 19:30 Tramadol HCl (Ultram) 50 mg PRN Q6HRS PRN PO PAIN Last administered on at 19:49; Start 01/23/18 at 19:30 Acetaminophen/ Hydrocodone Bitart (Lortab 5/325) 1 tab PRN Q6HRS PRN PO PAIN; Start 01/23/18 at 19:30 Ringer's Solution 1,000 ml @ 999 mls/hr 1X ONCE IV Last administered on 01/23at 19:53; Start 01/23/18 at 20:00; Stop 01/23/18 at 21:00; Status DC Ringer's Solution 1,000 ml @ 100 mls/hr Q10H IV Last administered on at 21:27; Start 01/23/18 at 21:00 Active Scripts Active Culturelle (Lactobacillus Rhamnosus Gg) 1 Each Cap.sprink 1 Cap PO BID 14 Days Cefpodoxime Proxetil 100 Mg Tablet 200 Mg PO BID 10 Days Reported Calmoseptine Ointment (Menthol/Zinc Oxide) 3.5 Gm Oint.pack 3.5 Gm TP TID PRN Dulcolax (Bisacodyl) 5 Mg Tablet.dr 10 Mg WI PRN DAILY PRN Anacin 400-32 Mg Tablet (Aspirin/Caffeine) 1 Each Tablet 1 Each PO Q6HRS PRN Milk Of Magnesia (Magnesium Hydroxide) 400 Mg/5 Ml Oral.susp 400 Mg PO DAILY PRN Cyclobenzaprine Hcl 5 Mg Tablet 1 Tab PO QHS Senna-Docusate Sodium Tablet (Sennosides/Docusate Sodium) 1 Each Tablet 1 Each PO DAILY Zantac (Ranitidine Hcl) 150 Mg Tablet 150 Mg PO DAILY Xanax (Alprazolam) 0.25 Mg Tablet 1 Tab PO HS Furosemide 40 Mg Tablet 1 Tab PO DAILY Miralax (Polyethylene Glycol 3350) 17 Gm Powd.pack 1 Packet PO DAILY Tamsulosin Hcl 0.4 Mg Cap.er.24h 0.4 Mg PO HS Gabapentin 600 Mg Tablet 600 Mg PO BID Gabapentin 100 Mg Capsule 100 Mg PO HS Buspirone Hcl 5 Mg Tablet 5 Mg PO DAILY Allergies Allergies: Coded Allergies: Penicillins (Verified Allergy, Intermediate, HAS TOLERATED CEFTRIAXONE, 08/05/17) I S O L A T I O N *CONTACT* (Verified Allergy, Unknown, 07/21/16) mrsa ROS Review of System Mostly unable to obtain clear history due to patient mental status General: YES: Chills, Fatigue, Malaise; No: Night Sweats, Appetite, Other PSYCHOLOGICAL ROS: YES: Behavioral Disorder; No: Anxiety, Concentration difficultie, Decreased libido, Depression, Disorientation, Hallucinations, Hostility, Irritablity, Memory difficulties, Mood Swings, Obsessive thoughts, Physical abuse, Sexual abuse, Sleep disturbances, Suicidal ideation, Other Eyes: No Blurry vision, No Decreased vision, No Double vision, No Dry eyes, No Excessive tearing, No Eye Pain, No Itchy Eyes, No Loss of vision, No Photophobia , No Scotomata, No Uses contacts, No Uses glasses, No Other HEENT: No: Heacaches, Visual Changes, Hearing change, Nasal congestion, Nasal discharge, Oral lesions, Sinus pain, Sore Throat, Epistaxis, Sneezing, Snoring, Tinnitus, Vertigo, Vocal changes, Other ALLERGY AND IMMUNOLOGY: No: Hives, Insect Bite Sensitivity, Itchy/Watery Eyes, Nasal Congestion, Post Nasal Drip, Seasonal Allergies, Other Hematological and Lymphatic: YES: Bleeding Problems; No: Blood Clots, Blood Transfusions, Brusing, Night Sweats, Pallor, Swollen Lymph Nodes, Other ENDOCRINE: No: Breast Changes, Galactorrhea, Hair Pattern Changes, Hot Flashes , Malaise/lethargy, Mood Swings, Palpitations, Polydipsia/polyuria, Skin Changes , Temperature Intolerance, Unexpected Weight Changes, Other Breast: No New/Changing Breast Lumps, No Nipple changes, No Nipple discharge, No Other Respiratory: No: Cough, Hemoptysis, Orthopnea, Pleuritic Pain, Shortness of breath, SOB with excertion, Sputum Changes, Stridor, Tachypnea, Wheezing, Other Cardiovascular: No Chest Pain, No Palpitations, No Orthopnea, No Paroxysmal Noc. Dyspnea, No Edema, No Lt Headedness, No Other Gastrointestinal: Yes Nausea Genitourinary: YES Dysuria, YES Frequency, YES Incontinence; No Hematuria, No Retention, No Discharge, No Urgency, No Pain, No Flank Pain , No Other, No , No , No , No , No , No , No Musculoskeletal: Yes Gait Disturbance; No Joint Pain, No Joint Stiffness, No Joint Swelling, No Muscle Pain, No Muscular Weakness, No Pain In:, No Swelling In:, No Other Neurological: Yes Behavorial Changes, Yes Confusion; No Bowel/Bladder ControlChng, No Dizziness, No Gait Disturbance, No Headaches , No Impaired Coord/balance, No Memory Loss, No Numbness/Tingling, No Seizures, No Speech Problems, No Tremors, No Visual Changes, No Weakness, No Other Skin: Yes Rash; No Dry Skin, No Eczema, No Hair Changes, No Lumps, No Mole Changes, No Mottling, No Nail Changes, No Pruritus, No Skin Lesion Changes, No Other, No Acne Physical Exam General: Alert, Cooperative, mild distress HEENT: Atraumatic, PERRLA, EOMI, Mucous membr. moist/pink Lungs: Other (Scattered wheezing) Heart: S1S2, RRR, no murmurs Abdomen: Normal bowel sounds, Soft, No tenderness, No hepatosplenomegaly, No masses Extremities: No clubbing, No cyanosis, No edema, Normal pulses, No tenderness/ swelling, Other (Right heel with foul smelling ulcer) Skin: Other (Right heel ulcer as above and stage 1 decubitus ulcer on sacrm) Vitals Vitals Vital Signs Date Time Temp Pulse Resp B/P (MAP) Pulse Ox O2 Delivery O2 Flow Rate FiO2 01/23/18 21:33 89 18 146/71 (96) 99 Nasal Cannula 2.0 01/23/18 19:00 99.0 99.0 Labs Labs Laboratory Tests Test 01/23/18 15:35 01/23/18 15:50 Urine Collection Type U cath Urine Color Yellow Urine Clarity Turbid Urine pH 5.5 Urine Specific [place] 1.015 Urine Protein 30 mg/dL (NEG-TRACE) Urine Glucose (UA) Negative mg/dL (NEG) Urine Ketones (Stick) Negative mg/dL (NEG) Urine Blood Moderate (NEG) Urine Nitrite Positive (NEG) Urine Bilirubin Negative (NEG) Urine Urobilinogen Dipstick 1.0 mg/dL (0.2 mg/dL) Urine Leukocyte Esterase Large (NEG) Urine RBC 1-2 /HPF (0-2) Urine WBC Tntc /HPF (0-4) Urine Squamous Epithelial Cells Few /LPF Urine Bacteria Many /HPF (0-FEW) Lactic Acid Level 1.0 mmol/L (0.4-2.0) White Blood Count 16.1 x10^3/uL (4.0-11.0) Red Blood Count 4.54 x10^6/uL (3.50-5.40) Hemoglobin 12.4 g/dL (12.0-15.5) Hematocrit 37.3 % (36.0-47.0) Mean Corpuscular Volume 82 fL (79-100) Mean Corpuscular Hemoglobin 27 pg (25-35) Mean Corpuscular Hemoglobin Concent 33 g/dL (31-37) Red Cell Distribution Width 19.2 % (11.5-14.5) Platelet Count 265 x10^3/uL (140-400) Neutrophils (%) (Auto) 78 % (31-73) Lymphocytes (%) (Auto) 11 % (24-48) Monocytes (%) (Auto) 11 % (0-9) Eosinophils (%) (Auto) 0 % (0-3) Basophils (%) (Auto) 0 % (0-3) Neutrophils # (Auto) 12.5 x10^3uL (1.8-7.7) Lymphocytes # (Auto) 1.7 x10^3/uL (1.0-4.8) Monocytes # (Auto) 1.8 x10^3/uL (0.0-1.1) Eosinophils # (Auto) 0.0 x10^3/uL (0.0-0.7) Basophils # (Auto) 0.1 x10^3/uL (0.0-0.2) Sodium Level 141 mmol/L (136-145) Potassium Level 3.7 mmol/L (3.5-5.1) Chloride Level 102 mmol/L (98-107) Carbon Dioxide Level 28 mmol/L (21-32) Anion Gap 11 (6-14) Blood Urea Nitrogen 15 mg/dL (7-20) Creatinine 1.2 mg/dL (0.6-1.0) Estimated GFR (Cockcroft-Gault) 52.6 BUN/Creatinine Ratio 13 (6-20) Glucose Level 119 mg/dL (70-99) Calcium Level 8.8 mg/dL (8.5-10.1) Total Bilirubin 0.5 mg/dL (0.2-1.0) Aspartate Amino Transf (AST/SGOT) 13 U/L (15-37) Alanine Aminotransferase (ALT/SGPT) 13 U/L (14-59) Alkaline Phosphatase 139 U/L (46-116) Total Protein 8.1 g/dL (6.4-8.2) Albumin 3.6 g/dL (3.4-5.0) Albumin/Globulin Ratio 0.8 (1.0-1.7) Influenza Type A Antigen Negative (NEGATIVE) Influenza Type B Antigen Negative (NEGATIVE) Laboratory Tests Test 01/23/18 15:35 01/23/18 15:50 Urine Collection Type U cath Urine Color Yellow Urine Clarity Turbid Urine pH 5.5 Urine Specific [place] 1.015 Urine Protein 30 mg/dL (NEG-TRACE) Urine Glucose (UA) Negative mg/dL (NEG) Urine Ketones (Stick) Negative mg/dL (NEG) Urine Blood Moderate (NEG) Urine Nitrite Positive (NEG) Urine Bilirubin Negative (NEG) Urine Urobilinogen Dipstick 1.0 mg/dL (0.2 mg/dL) Urine Leukocyte Esterase Large (NEG) Urine RBC 1-2 /HPF (0-2) Urine WBC Tntc /HPF (0-4) Urine Squamous Epithelial Cells Few /LPF Urine Bacteria Many /HPF (0-FEW) Lactic Acid Level 1.0 mmol/L (0.4-2.0) White Blood Count 16.1 x10^3/uL (4.0-11.0) Red Blood Count 4.54 x10^6/uL (3.50-5.40) Hemoglobin 12.4 g/dL (12.0-15.5) Hematocrit 37.3 % (36.0-47.0) Mean Corpuscular Volume 82 fL (79-100) Mean Corpuscular Hemoglobin 27 pg (25-35) Mean Corpuscular Hemoglobin Concent 33 g/dL (31-37) Red Cell Distribution Width 19.2 % (11.5-14.5) Platelet Count 265 x10^3/uL (140-400) Neutrophils (%) (Auto) 78 % (31-73) Lymphocytes (%) (Auto) 11 % (24-48) Monocytes (%) (Auto) 11 % (0-9) Eosinophils (%) (Auto) 0 % (0-3) Basophils (%) (Auto) 0 % (0-3) Neutrophils # (Auto) 12.5 x10^3uL (1.8-7.7) Lymphocytes # (Auto) 1.7 x10^3/uL (1.0-4.8) Monocytes # (Auto) 1.8 x10^3/uL (0.0-1.1) Eosinophils # (Auto) 0.0 x10^3/uL (0.0-0.7) Basophils # (Auto) 0.1 x10^3/uL (0.0-0.2) Sodium Level 141 mmol/L (136-145) Potassium Level 3.7 mmol/L (3.5-5.1) Chloride Level 102 mmol/L (98-107) Carbon Dioxide Level 28 mmol/L (21-32) Anion Gap 11 (6-14) Blood Urea Nitrogen 15 mg/dL (7-20) Creatinine 1.2 mg/dL (0.6-1.0) Estimated GFR (Cockcroft-Gault) 52.6 BUN/Creatinine Ratio 13 (6-20) Glucose Level 119 mg/dL (70-99) Calcium Level 8.8 mg/dL (8.5-10.1) Total Bilirubin 0.5 mg/dL (0.2-1.0) Aspartate Amino Transf (AST/SGOT) 13 U/L (15-37) Alanine Aminotransferase (ALT/SGPT) 13 U/L (14-59) Alkaline Phosphatase 139 U/L (46-116) Total Protein 8.1 g/dL (6.4-8.2) Albumin 3.6 g/dL (3.4-5.0) Albumin/Globulin Ratio 0.8 (1.0-1.7) Influenza Type A Antigen Negative (NEGATIVE) Influenza Type B Antigen Negative (NEGATIVE) VTE Prophylaxis Ordered VTE Prophylaxis Devices: Yes VTE Pharmacological Prophylaxi: Yes Assessment/Plan Assessment/Plan A/P: Sepsis - likely 2/2 ulcer vs UTI, will treat both empirically, had IVF appropriately in ED. F/u cultures blood urine, and wound Altered mental status - likely encephalopathy 2/2 metabolic/sepsis and possible baseline dementia acutely worsened. will monitor, light during day, frequent redirection Right heel ulcer - Culture, wound care to see Sacral decubitus ulcer - dressing change, wound care to see. Consider PT/OT for deconditioning, apparently she is somewhat bedbound, but this is unclear Dysuria - frequent UTIs, will treat currently and consider chronic suppressive therapy in the future (ceftin, bactrim, methenamine, probably not nitrofurantoin with her pulmonary hx) Hypoxia - new, though previously on chest CT appears to have some chronic emphesematous changes. Will orders nebulizer treatments. FEN - NSS, General diet PPX - Heparin FULL CODE Inpatient for sepsis likely of urinary origin vs heel ulcer, will need to return to skilled [facility] on d/c STACY GONZALEZ MD Jan 23, 2018 22:43
[2018-01-23] MEDS ORDERED: BISACODYL 5 MG TABLET.DR. PO PRN (22:45)
[2018-01-23] MEDS ORDERED: ACETAMINOPHEN 325 MG TABLET. PO PRN (22:45)
[2018-01-23] MEDS ORDERED: NON FORMULARY ITEM (Menthol/Zinc Oxide (Calmoseptine Ointment) 3.5 GM) TP PRN (22:45)
[2018-01-23 23:00] VITALS: BP 142/72
[2018-01-23] MEDS: ONDANSETRON PF 4 MG/2 ML VIAL. IV PRN (23:30)
[2018-01-24] VITALS (7 sets, daily range): BP systolic 120–173; BP diastolic 63–96
[2018-01-24] MEDS: ACETAMINOPHEN 325 MG TABLET. PO PRN ×2 (02:38→12:10)
--- NOTE | 2018-01-24 03:26 | EKG ---
[facility] [address] [place] [address] Test Date: 2018-01-23 Test Time: 16:24:23 Pat Name: ALEXIS TINOCO Department: Room: 410 Gender: F [employer]: : [id number] Requested By: PAULINO SINGH Order Number: [id number] Reading MD: Mike Comer MD Measurements Intervals [place] Rate: 97 P: 25 LA: 168 QRS: -8 QRSD: 78 T: 39 QT: 330 QTc: 423 Interpretive Statements SINUS RHYTHM Electronically Signed On 01-24-2018 9:43:26 CDT by Mike Comer MD
[2018-01-24] MEDS: HYDROcodone/APAP 5/325MG 1 TAB TABLET PO PRN ×3 (05:18→22:16)
[2018-01-24 05:53] LABS: BASO # 0.1 x10^3/uL (0.0-0.2); BASO % 1 % (0-3); EOS % 0 % (0-3); HEMATOCRIT 30.4 % (36.0-47.0); LYMPH % 13 % (24-48); MEAN CORPUSCULAR HEMOGLOBIN 27 pg (25-35); MEAN CORPUSCULAR HGB CONC 33 g/dL (31-37); MEAN CORPUSCULAR VOLUME 82 fL (79-100); MONO # 1.9 x10^3/uL (0.0-1.1); MONO % 13 % (0-9); NEUT # 10.7 x10^3uL (1.8-7.7); NEUT % 73 % (31-73); PLATELET COUNT 190 x10^3/uL (140-400); RED CELL DISTRIBUTION WIDTH 19.8 % (11.5-14.5); WHITE BLOOD COUNT 14.7 x10^3/uL (4.0-11.0)
[2018-01-24 05:59] LABS: GFR 64.9; POTASSIUM 3.1 mmol/L (3.5-5.1)
[2018-01-24] MEDS: MEROPENEM 1 GM in IV NORMAL SALINE 100ML 100 ML IV SCH ×3 (06:01→21:30)
[2018-01-24] MEDS: CIPROFLOXACIN 400MG PREMIX 200 ML IV SCH ×2 (06:01→08:18)
[2018-01-24] MEDS: IV RINGERS,LACTATED 1000ML 1,000 ML IV SCH (06:37)
[2018-01-24] MEDS ORDERED: ASA/APAP/CAFFEINE 250/250/65MG TABLET. PO PRN (07:15)
[2018-01-24 07:22] LABS: % BANDS 6 % (0-9); % LYMPHS 15 % (24-48); % MONOS 13 % (0-10); % SEGS 66 % (35-66)
[2018-01-24 07:23] LABS: ANISOCYTOSIS SLIGHT; PLT ESTIMATE ADEQUATE (ADEQUATE)
[2018-01-24] MEDS: SENNOSIDES/DOCUSATE 8.6/50MG TABLET. PO SCH ×2 (08:17→21:00)
[2018-01-24] MEDS: POLYETHYLENE GLYCOL 3350 17 GM PACKET. PO SCH (08:17)
[2018-01-24] MEDS: LACTOBACILLUS RHAMNOSUS GG 1 CAPSULE. PO SCH ×2 (08:17→21:00)
[2018-01-24] MEDS: FAMOTIDINE 20 MG TABLET. PO SCH (08:17)
[2018-01-24] MEDS: busPIRone 5 MG TABLET. PO SCH (08:17)
[2018-01-24] MEDS: HEPARIN for SUB-Q USE 5,000 UNIT/ML VIAL. SQ SCH ×2 (08:20→21:00)
--- NOTE | 2018-01-24 09:29 | PDOC ---
Infectious Disease Note Vital Sign Vital Signs Vital Signs Date Time Temp Pulse Resp B/P (MAP) Pulse Ox O2 Delivery O2 Flow Rate FiO2 01/24/18 07:20 Nasal Cannula 2.0 01/24/18 07:00 98.3 74 18 132/75 (94) 96 98.3 Labs Lab Laboratory Tests Test 01/23/18 15:35 01/23/18 15:50 01/24/18 05:17 Urine Collection Type U cath Urine Color Yellow Urine Clarity Turbid Urine pH 5.5 Urine Specific [place] 1.015 Urine Protein 30 mg/dL (NEG-TRACE) Urine Glucose (UA) Negative mg/dL (NEG) Urine Ketones (Stick) Negative mg/dL (NEG) Urine Blood Moderate (NEG) Urine Nitrite Positive (NEG) Urine Bilirubin Negative (NEG) Urine Urobilinogen Dipstick 1.0 mg/dL (0.2 mg/dL) Urine Leukocyte Esterase Large (NEG) Urine RBC 1-2 /HPF (0-2) Urine WBC Tntc /HPF (0-4) Urine Squamous Epithelial Cells Few /LPF Urine Bacteria Many /HPF (0-FEW) Lactic Acid Level 1.0 mmol/L (0.4-2.0) White Blood Count 16.1 x10^3/uL (4.0-11.0) 14.7 x10^3/uL (4.0-11.0) Red Blood Count 4.54 x10^6/uL (3.50-5.40) 3.70 x10^6/uL (3.50-5.40) Hemoglobin 12.4 g/dL (12.0-15.5) 10.0 g/dL (12.0-15.5) Hematocrit 37.3 % (36.0-47.0) 30.4 % (36.0-47.0) Mean Corpuscular Volume 82 fL (79-100) 82 fL (79-100) Mean Corpuscular Hemoglobin 27 pg (25-35) 27 pg (25-35) Mean Corpuscular Hemoglobin Concent 33 g/dL (31-37) 33 g/dL (31-37) Red Cell Distribution Width 19.2 % (11.5-14.5) 19.8 % (11.5-14.5) Platelet Count 265 x10^3/uL (140-400) 190 x10^3/uL (140-400) Neutrophils (%) (Auto) 78 % (31-73) 73 % (31-73) Lymphocytes (%) (Auto) 11 % (24-48) 13 % (24-48) Monocytes (%) (Auto) 11 % (0-9) 13 % (0-9) Eosinophils (%) (Auto) 0 % (0-3) 0 % (0-3) Basophils (%) (Auto) 0 % (0-3) 1 % (0-3) Neutrophils # (Auto) 12.5 x10^3uL (1.8-7.7) 10.7 x10^3uL (1.8-7.7) Lymphocytes # (Auto) 1.7 x10^3/uL (1.0-4.8) 2.0 x10^3/uL (1.0-4.8) Monocytes # (Auto) 1.8 x10^3/uL (0.0-1.1) 1.9 x10^3/uL (0.0-1.1) Eosinophils # (Auto) 0.0 x10^3/uL (0.0-0.7) 0.0 x10^3/uL (0.0-0.7) Basophils # (Auto) 0.1 x10^3/uL (0.0-0.2) 0.1 x10^3/uL (0.0-0.2) Sodium Level 141 mmol/L (136-145) 140 mmol/L (136-145) Potassium Level 3.7 mmol/L (3.5-5.1) 3.1 mmol/L (3.5-5.1) Chloride Level 102 mmol/L (98-107) 105 mmol/L (98-107) Carbon Dioxide Level 28 mmol/L (21-32) 29 mmol/L (21-32) Anion Gap 11 (6-14) 6 (6-14) Blood Urea Nitrogen 15 mg/dL (7-20) 13 mg/dL (7-20) Creatinine 1.2 mg/dL (0.6-1.0) 1.0 mg/dL (0.6-1.0) Estimated GFR (Cockcroft-Gault) 52.6 64.9 BUN/Creatinine Ratio 13 (6-20) Glucose Level 119 mg/dL (70-99) 131 mg/dL (70-99) Calcium Level 8.8 mg/dL (8.5-10.1) 8.0 mg/dL (8.5-10.1) Total Bilirubin 0.5 mg/dL (0.2-1.0) Aspartate Amino Transf (AST/SGOT) 13 U/L (15-37) Alanine Aminotransferase (ALT/SGPT) 13 U/L (14-59) Alkaline Phosphatase 139 U/L (46-116) Total Protein 8.1 g/dL (6.4-8.2) Albumin 3.6 g/dL (3.4-5.0) Albumin/Globulin Ratio 0.8 (1.0-1.7) Influenza Type A Antigen Negative (NEGATIVE) Influenza Type B Antigen Negative (NEGATIVE) Segmented Neutrophils % 66 % (35-66) Band Neutrophils % 6 % (0-9) Lymphocytes % 15 % (24-48) Monocytes % 13 % (0-10) Platelet Estimate Adequate (ADEQUATE) Anisocytosis Slight Objective Assessment Rt calcaneal ulcer Fever UTI Sacral decub Debility Paraplegia Plan Plan of Care need heel debridement d/c cipro cont vanc and meropenem check cultures supportive care HUMBERTO JOHNSTON MD Jan 24, 2018 09:29
--- NOTE | 2018-01-24 12:16 | CONS ---
DATE OF CONSULTATION: 01/24/2018 REQUESTING PHYSICIAN: Dr. Ram. REASON FOR CONSULTATION: Calcaneal wound and UTI and sepsis. HISTORY OF PRESENT ILLNESS: This is a 77-year-old female who is a [facility] resident who has a functional paraplegia as she is not able to walk. She denies any stroke or any back surgery or anything, but she has not been able to walk for 2 years. The patient developed right calcaneal decubitus, some sacral decubitus changes and the patient was brought in because of that as well as 103 fever at nursing facility. The patient was found to have evidence for UTI and this decubiti. The patient has white counts elevated to 16,000. Lactic acid has been normal. Influenza screen negative. Urinalysis showed too numerous to count WBC. The patient has been given Cipro, vancomycin and meropenem. The patient is alert, awake. The patient denies any nausea, vomiting, diarrhea, chest pain, shortness of breath, abdominal pain, urinary symptoms. PAST MEDICAL HISTORY: The patient has had lumbar laminectomy done, hypertension, gastroesophageal reflux disease, depression, arthritis and still calcaneal decubitus is here for long time, she says several months and sacral decubitus, maybe a couple of months. SOCIAL HISTORY: Negative for smoking, alcohol, illicit drug use. ALLERGIES: LISTED ALLERGIC TO PENICILLIN, she does not remember what happened. CURRENT MEDICATIONS: Reviewed. REVIEW OF SYSTEMS: As per HPI, all other systems reviewed are negative. PHYSICAL EXAMINATION: GENERAL: Alert and oriented female, not in any distress. VITAL SIGNS: Stable with a T-max 103.1, pulse 74, respirations 18, blood pressure 132/75. HEENT: Anicteric. NECK: Supple, no JVP, no lymphadenopathy. LUNGS: Clear. HEART: S1, S2 regular. ABDOMEN: Benign. EXTREMITIES: She cannot use at all any much of lower extremity other than the very slight foot movement she can do. She does have a right calcaneal wound, which is a black eschar softening up. Sacral breakdown is very minor skin breakdown. The patient does have good upper extremity function. LABORATORY DATA: White count is 14.7, hemoglobin 10.0, platelets are normal. BUN and creatinine is normal. Urinalysis showed too numerous to count WBC. Chest x-ray: Unremarkable. IMPRESSION: 1. Fever. 2. Leukocytosis. 3. Right calcaneal decubitus. 4. Urinary tract infection. 5. Paraplegia. RECOMMENDATIONS: We will discontinue ciprofloxacin. Continue vancomycin and meropenem. Supportive care. A bedside surgical debridement of calcaneal decubitus and we will check the cultures and continue to follow. Thank you very much, Dr. Ram for giving me the opportunity to participate in this patient's care. HUMBERTO JOHNSTON MD DR: BETZY/mauro JOB#: [id number] / [id number]
--- NOTE | 2018-01-24 14:08 | PDOC2 ---
CONSULT Date of Consult Date of Consult DATE: 01/24/18 TIME: 10:41 Reason for Consult Reason for Consult: Right heel pressure ulcer and sacral skin breakdown Referring Physician Referring Physician: Dr Ram Identification/Chief Complaint Problems: (1) Decubitus ulcer (2) Sepsis (3) Stage 2 skin ulcer of sacral region Source Source: Chart review, Patient History of Present Illness Reason for Visit: 77-year-old female who presented to the ER from [place] at [facility]. Pt reported to have been somnolent with fevers. Pt admitted from the ER with sepsis with an elevated WBC of 16.1 and fever of 103.1. Pt with hx of sacral/coccyx wounds as evidenced by hypopigmented scarring. Pt with right heel wound. Pt states heel has been debrided in the past, last debrided approximately 1 month ago. Pt denies pain to her buttock region or right heel. Pt denies hx of DM or difficulty with wound healing. Past Medical History Cardiovascular: HTN Pulmonary: No pertinent hx GI: No pertinent hx Heme/Onc: No pertinent hx Hepatobiliary: No pertinent hx Psych: No pertinent hx Rheumatologic: No pertinent hx, Other Infectious disease: Other Renal/: UTI Endocrine: No pertinent hx Past Surgical History Past Surgical History: No pertinent history Family History Family History: Hypertension Social History ALCOHOL: rare Drugs: None Current Problem List Problem List Problems Medical Problems: (1) Decubitus ulcer Status: Acute (2) Sepsis Status: Acute Current Medications Current Medications Current Medications Acetaminophen (Tylenol) 1,000 mg 1X ONCE PO Last administered on 01/23/18at 16 :25; Start 01/23/18 at 16:00; Stop 01/23/18 at 16:01; Status DC Sodium Chloride 1,000 ml @ 100 mls/hr Q10H IV Last administered on 01/23/18at 16:25; Start 01/23/18 at 15:54; Stop 01/23/18 at 19:50; Status DC Ciprofloxacin/ Dextrose 200 ml @ 200 mls/hr Q12HR IV Last administered on at 06:01; Start 01/24/18 at 06:00; Stop 01/24/18 at 09:35; Status DC Meropenem 1 gm/ Sodium Chloride 100 ml @ 200 mls/hr Q12HR IV Last administered on 01/24/18at 06:01; Start 01/24/18 at 06:00 Vancomycin HCl 250 ml @ 250 mls/hr 1X ONCE IV ; Start 01/23/18 at 16:15; Stop 01/23/18 at 17:14; Status UNV Ciprofloxacin/ Dextrose 200 ml @ 200 mls/hr 1X ONCE IV Last administered on 01/23/18at 16:26; Start 01/23/18 at 16:15; Stop 01/23/18 at 17:14; Status DC Meropenem 1 gm/ Sodium Chloride 100 ml @ 200 mls/hr 1X ONCE IV Last administered on 01/23/18at 17:45; Start 01/23/18 at 16:15; Stop 01/23/18 at 16 :44; Status DC Vancomycin HCl 2 gm/Sodium Chloride 500 ml @ 250 mls/hr 1X ONCE IV Last administered on 01/23/18at 18:47; Start 01/23/18 at 16:15; Stop 01/23/18 at 18 :14; Status DC Acetaminophen (Tylenol) 650 mg PRN Q6HRS PRN PO MILD PAIN Last administered on 01/24/18at 12:10; Start 01/23/18 at 19:30 Tramadol HCl (Ultram) 50 mg PRN Q6HRS PRN PO MODERATE PAIN Last administered on 01/23/18at 19:49; Start 01/23/18 at 19:30 Acetaminophen/ Hydrocodone Bitart (Lortab 5/325) 1 tab PRN Q6HRS PRN PO SEVERE PAIN Last administered on 01/24/18at 05:18; Start 01/23/18 at 19:30 Ringer's Solution 1,000 ml @ 999 mls/hr 1X ONCE IV Last administered on 01/23at 19:53; Start 01/23/18 at 20:00; Stop 01/23/18 at 21:00; Status DC Ringer's Solution 1,000 ml @ 100 mls/hr Q10H IV Last administered on at 21:27; Start 01/23/18 at 21:00; Stop 01/24/18 at 06:38; Status DC Potassium Chloride/Sodium Chloride 1,000 ml @ 100 mls/hr Q10H IV Last administered on 01/24/18at 06:00; Start 01/23/18 at 23:00 Ondansetron HCl (Zofran) 4 mg PRN Q6HRS PRN IV NAUSEA/VOMITING Last administered on 01/23/18at 23:30; Start 01/23/18 at 22:45 Acetaminophen (Tylenol) 650 mg PRN Q6HRS PRN PO Headaches, Temp > 101.5F; Start 01/23/18 at 22:45; Stop 01/24/18 at 07:02; Status DC Senna/Docusate Sodium (Senna Plus) 1 tab BID PO Last administered on at 08:17; Start 01/24/18 at 09:00 Heparin Sodium (Porcine) (Heparin Sodium) 5,000 unit Q12HR SQ Last administered on 01/24/18at 08:20; Start 01/24/18 at 09:00 Bisacodyl (Dulcolax Tab) 10 mg PRN DAILY PRN PO CONSTIPATION; Start 01/23/18 at 22:45 Buspirone HCl (Buspar) 5 mg DAILY PO Last administered on 01/24/18at 08:17; Start 01/24/18 at 09:00 Lactobacillus Rhamnosus (Culturelle) 1 cap BID PO Last administered on at 08:17; Start 01/24/18 at 09:00 Tamsulosin HCl (Flomax) 0.4 mg HS PO ; Start 01/24/18 at 21:00 Acetaminophen/ Aspirin/Caffeine (Excedrin Migraine) 1 tab PRN Q6HRS PRN PO MIGRAINE HEADACHE Last administered on 01/24/18at 08:16; Start 01/24/18 at 07: 15 Non-Formulary Medication (Menthol/Zinc Oxide (Calmoseptine Ointment)) 3.5 gm TID PRN TP SKIN PROTECTION; Start 01/23/18 at 22:45; Status UNV Polyethylene Glycol (miraLAX PACKET) 17 gm DAILY PO ; Start 01/24/18 at 09:00 Famotidine (Pepcid) 20 mg DAILY PO Last administered on 01/24/18at 08:17; Start 01/24/18 at 09:00 Active Scripts Active Culturelle (Lactobacillus Rhamnosus Gg) 1 Each Cap.sprink 1 Cap PO BID 14 Days Cefpodoxime Proxetil 100 Mg Tablet 200 Mg PO BID 10 Days Reported Calmoseptine Ointment (Menthol/Zinc Oxide) 3.5 Gm Oint.pack 3.5 Gm TP TID PRN Dulcolax (Bisacodyl) 5 Mg Tablet.dr 10 Mg TN PRN DAILY PRN Anacin 400-32 Mg Tablet (Aspirin/Caffeine) 1 Each Tablet 1 Each PO Q6HRS PRN Milk Of Magnesia (Magnesium Hydroxide) 400 Mg/5 Ml Oral.susp 400 Mg PO DAILY PRN Cyclobenzaprine Hcl 5 Mg Tablet 1 Tab PO QHS Senna-Docusate Sodium Tablet (Sennosides/Docusate Sodium) 1 Each Tablet 1 Each PO DAILY Zantac (Ranitidine Hcl) 150 Mg Tablet 150 Mg PO DAILY Xanax (Alprazolam) 0.25 Mg Tablet 1 Tab PO HS Furosemide 40 Mg Tablet 1 Tab PO DAILY Miralax (Polyethylene Glycol 3350) 17 Gm Powd.pack 1 Packet PO DAILY Tamsulosin Hcl 0.4 Mg Cap.er.24h 0.4 Mg PO HS Gabapentin 600 Mg Tablet 600 Mg PO BID Gabapentin 100 Mg Capsule 100 Mg PO HS Buspirone Hcl 5 Mg Tablet 5 Mg PO DAILY Allergies Allergies: Coded Allergies: Penicillins (Verified Allergy, Intermediate, HAS TOLERATED CEFTRIAXONE, 08/05/17) I S O L A T I O N *CONTACT* (Verified Allergy, Unknown, 07/21/16) mrsa ROS Review of System CONSTITUTIONAL: No fever or chills EYES: No recent changes SKIN: No rash or itching. Wound to right heel present for greater than 1 month. Hx of wounds to buttock region. CARDIOVASCULAR: No chest pain, syncope, palpitations, or edema RESPIRATORY: No SOB or cough GASTROINTESTINAL: No nausea, vomiting or abdominal pain NEUROLOGICAL: No headaches or weakness. ENDOCRINE: No cold or heat intolerance GENITOURINARY: No urgency or frequency of urination MUSCULOSKELETAL: No back pain or joint pain. Pt w/c bound, requires assistance with transfers. LYMPHATICS: No enlarged lymph nodes PSYCHIATRIC: No anxiety or depression Physical Exam General: Alert, Cooperative, No acute distress HEENT: Atraumatic, EOMI Lungs: Normal air movement Abdomen: Soft, No tenderness, No masses Extremities: No clubbing, No cyanosis, Other (1-2+ pitting edema of RLE. No warmth or erythema noted.) Skin: Other (Right heel with open ulceration. Wound bed covered with eschar. Edges not attached. Odor present. Moderate amount of serosanguinous drainage. Following written consent and application or topical lidocaine, unstable eschar and underlying slough removed. Pt tolerated without painful symptoms. No active bleeding. Following debridement wound bed 100% boggy slough with bone palpable, but not visible, at proximal aspect of wound. Wound measures 1.7x3.1x1.2cm with undermining from 9-3 with max depth of 0.7cm. Sacral/coccyx region with multiple open ulcerations. Wound beds pink and moist with minimal serosanguinous drainage. Surrounding tissue with maroon-purple discoloration which is not blanchable. Pt with multiple areas of thicked scar tissue on buttock from previous healed ulcerations. ) Neuro: Normal speech Psych/Mental Status: Mental status NL, Mood NL Vitals VITALS Vital Signs Date Time Temp Pulse Resp B/P (MAP) Pulse Ox O2 Delivery O2 Flow Rate FiO2 01/24/18 11:00 98.1 100 18 126/66 (86) 100 Nasal Cannula 2.0 98.1 Labs Labs Laboratory Tests Test 01/23/18 15:35 01/23/18 15:50 01/24/18 05:17 Urine Collection Type U cath Urine Color Yellow Urine Clarity Turbid Urine pH 5.5 Urine Specific [place] 1.015 Urine Protein 30 mg/dL (NEG-TRACE) Urine Glucose (UA) Negative mg/dL (NEG) Urine Ketones (Stick) Negative mg/dL (NEG) Urine Blood Moderate (NEG) Urine Nitrite Positive (NEG) Urine Bilirubin Negative (NEG) Urine Urobilinogen Dipstick 1.0 mg/dL (0.2 mg/dL) Urine Leukocyte Esterase Large (NEG) Urine RBC 1-2 /HPF (0-2) Urine WBC Tntc /HPF (0-4) Urine Squamous Epithelial Cells Few /LPF Urine Bacteria Many /HPF (0-FEW) Lactic Acid Level 1.0 mmol/L (0.4-2.0) White Blood Count 16.1 x10^3/uL (4.0-11.0) 14.7 x10^3/uL (4.0-11.0) Red Blood Count 4.54 x10^6/uL (3.50-5.40) 3.70 x10^6/uL (3.50-5.40) Hemoglobin 12.4 g/dL (12.0-15.5) 10.0 g/dL (12.0-15.5) Hematocrit 37.3 % (36.0-47.0) 30.4 % (36.0-47.0) Mean Corpuscular Volume 82 fL (79-100) 82 fL (79-100) Mean Corpuscular Hemoglobin 27 pg (25-35) 27 pg (25-35) Mean Corpuscular Hemoglobin Concent 33 g/dL (31-37) 33 g/dL (31-37) Red Cell Distribution Width 19.2 % (11.5-14.5) 19.8 % (11.5-14.5) Platelet Count 265 x10^3/uL (140-400) 190 x10^3/uL (140-400) Neutrophils (%) (Auto) 78 % (31-73) 73 % (31-73) Lymphocytes (%) (Auto) 11 % (24-48) 13 % (24-48) Monocytes (%) (Auto) 11 % (0-9) 13 % (0-9) Eosinophils (%) (Auto) 0 % (0-3) 0 % (0-3) Basophils (%) (Auto) 0 % (0-3) 1 % (0-3) Neutrophils # (Auto) 12.5 x10^3uL (1.8-7.7) 10.7 x10^3uL (1.8-7.7) Lymphocytes # (Auto) 1.7 x10^3/uL (1.0-4.8) 2.0 x10^3/uL (1.0-4.8) Monocytes # (Auto) 1.8 x10^3/uL (0.0-1.1) 1.9 x10^3/uL (0.0-1.1) Eosinophils # (Auto) 0.0 x10^3/uL (0.0-0.7) 0.0 x10^3/uL (0.0-0.7) Basophils # (Auto) 0.1 x10^3/uL (0.0-0.2) 0.1 x10^3/uL (0.0-0.2) Sodium Level 141 mmol/L (136-145) 140 mmol/L (136-145) Potassium Level 3.7 mmol/L (3.5-5.1) 3.1 mmol/L (3.5-5.1) Chloride Level 102 mmol/L (98-107) 105 mmol/L (98-107) Carbon Dioxide Level 28 mmol/L (21-32) 29 mmol/L (21-32) Anion Gap 11 (6-14) 6 (6-14) Blood Urea Nitrogen 15 mg/dL (7-20) 13 mg/dL (7-20) Creatinine 1.2 mg/dL (0.6-1.0) 1.0 mg/dL (0.6-1.0) Estimated GFR (Cockcroft-Gault) 52.6 64.9 BUN/Creatinine Ratio 13 (6-20) Glucose Level 119 mg/dL (70-99) 131 mg/dL (70-99) Calcium Level 8.8 mg/dL (8.5-10.1) 8.0 mg/dL (8.5-10.1) Total Bilirubin 0.5 mg/dL (0.2-1.0) Aspartate Amino Transf (AST/SGOT) 13 U/L (15-37) Alanine Aminotransferase (ALT/SGPT) 13 U/L (14-59) Alkaline Phosphatase 139 U/L (46-116) Total Protein 8.1 g/dL (6.4-8.2) Albumin 3.6 g/dL (3.4-5.0) Albumin/Globulin Ratio 0.8 (1.0-1.7) Influenza Type A Antigen Negative (NEGATIVE) Influenza Type B Antigen Negative (NEGATIVE) Segmented Neutrophils % 66 % (35-66) Band Neutrophils % 6 % (0-9) Lymphocytes % 15 % (24-48) Monocytes % 13 % (0-10) Platelet Estimate Adequate (ADEQUATE) Anisocytosis Slight Laboratory Tests Test 01/23/18 15:35 01/23/18 15:50 01/24/18 05:17 Urine Collection Type U cath Urine Color Yellow Urine Clarity Turbid Urine pH 5.5 Urine Specific [place] 1.015 Urine Protein 30 mg/dL (NEG-TRACE) Urine Glucose (UA) Negative mg/dL (NEG) Urine Ketones (Stick) Negative mg/dL (NEG) Urine Blood Moderate (NEG) Urine Nitrite Positive (NEG) Urine Bilirubin Negative (NEG) Urine Urobilinogen Dipstick 1.0 mg/dL (0.2 mg/dL) Urine Leukocyte Esterase Large (NEG) Urine RBC 1-2 /HPF (0-2) Urine WBC Tntc /HPF (0-4) Urine Squamous Epithelial Cells Few /LPF Urine Bacteria Many /HPF (0-FEW) Lactic Acid Level 1.0 mmol/L (0.4-2.0) White Blood Count 16.1 x10^3/uL (4.0-11.0) 14.7 x10^3/uL (4.0-11.0) Red Blood Count 4.54 x10^6/uL (3.50-5.40) 3.70 x10^6/uL (3.50-5.40) Hemoglobin 12.4 g/dL (12.0-15.5) 10.0 g/dL (12.0-15.5) Hematocrit 37.3 % (36.0-47.0) 30.4 % (36.0-47.0) Mean Corpuscular Volume 82 fL (79-100) 82 fL (79-100) Mean Corpuscular Hemoglobin 27 pg (25-35) 27 pg (25-35) Mean Corpuscular Hemoglobin Concent 33 g/dL (31-37) 33 g/dL (31-37) Red Cell Distribution Width 19.2 % (11.5-14.5) 19.8 % (11.5-14.5) Platelet Count 265 x10^3/uL (140-400) 190 x10^3/uL (140-400) Neutrophils (%) (Auto) 78 % (31-73) 73 % (31-73) Lymphocytes (%) (Auto) 11 % (24-48) 13 % (24-48) Monocytes (%) (Auto) 11 % (0-9) 13 % (0-9) Eosinophils (%) (Auto) 0 % (0-3) 0 % (0-3) Basophils (%) (Auto) 0 % (0-3) 1 % (0-3) Neutrophils # (Auto) 12.5 x10^3uL (1.8-7.7) 10.7 x10^3uL (1.8-7.7) Lymphocytes # (Auto) 1.7 x10^3/uL (1.0-4.8) 2.0 x10^3/uL (1.0-4.8) Monocytes # (Auto) 1.8 x10^3/uL (0.0-1.1) 1.9 x10^3/uL (0.0-1.1) Eosinophils # (Auto) 0.0 x10^3/uL (0.0-0.7) 0.0 x10^3/uL (0.0-0.7) Basophils # (Auto) 0.1 x10^3/uL (0.0-0.2) 0.1 x10^3/uL (0.0-0.2) Sodium Level 141 mmol/L (136-145) 140 mmol/L (136-145) Potassium Level 3.7 mmol/L (3.5-5.1) 3.1 mmol/L (3.5-5.1) Chloride Level 102 mmol/L (98-107) 105 mmol/L (98-107) Carbon Dioxide Level 28 mmol/L (21-32) 29 mmol/L (21-32) Anion Gap 11 (6-14) 6 (6-14) Blood Urea Nitrogen 15 mg/dL (7-20) 13 mg/dL (7-20) Creatinine 1.2 mg/dL (0.6-1.0) 1.0 mg/dL (0.6-1.0) Estimated GFR (Cockcroft-Gault) 52.6 64.9 BUN/Creatinine Ratio 13 (6-20) Glucose Level 119 mg/dL (70-99) 131 mg/dL (70-99) Calcium Level 8.8 mg/dL (8.5-10.1) 8.0 mg/dL (8.5-10.1) Total Bilirubin 0.5 mg/dL (0.2-1.0) Aspartate Amino Transf (AST/SGOT) 13 U/L (15-37) Alanine Aminotransferase (ALT/SGPT) 13 U/L (14-59) Alkaline Phosphatase 139 U/L (46-116) Total Protein 8.1 g/dL (6.4-8.2) Albumin 3.6 g/dL (3.4-5.0) Albumin/Globulin Ratio 0.8 (1.0-1.7) Influenza Type A Antigen Negative (NEGATIVE) Influenza Type B Antigen Negative (NEGATIVE) Segmented Neutrophils % 66 % (35-66) Band Neutrophils % 6 % (0-9) Lymphocytes % 15 % (24-48) Monocytes % 13 % (0-10) Platelet Estimate Adequate (ADEQUATE) Anisocytosis Slight Assessment/Plan Assessment/Plan 1) Unstageable right heel pressure ulcer - bedside debrided overlying unstable eschar and superficial slough. Following debridement, bone palpable, unable to visualize d/t overlying slough. - 3V right foot x-ray - Arterial doppler of RLE - Surgery consulted for further debridement - Continue to follow ID lead for abx treatment - No weight bearing to the affected foot. Heelmedix boots ordered along with OSMAN mattress. - Cleanse and pat dry. Apply skin prep to surrounding tissue. Apply TheraHoney to wound bed. Cover with contact layer and adhesive foam dressing. Change every 3 days or prn if dressing loose or saturated. 2) Stage 2 sacral pressure ulcer with surrounding DTI - Cleanse and pat. Apply adhesive foam - Offload as much as possible. Q2h turning rotation. OSMAN mattress ordered. [employer] Jan 24, 2018 14:08
--- NOTE | 2018-01-24 14:56 | RAD ---
Right foot, 3 views, 01/24/2018: HISTORY: Right heel ulcer There is moderate patchy bony demineralization. There are moderate scattered degenerative changes, greatest at the first MTP joint. There is a small linear radiopaque foreign body projected over the soft tissues along the plantar aspect of the forefoot between the proximal phalanges of the second and third toes. This has appearance of an old needle or wire fragment. No acute fracture or dislocation is identified. There is soft tissue deformity along the posterior aspect of the heel compatible with the given history of a heel ulcer. No underlying destructive bony lesion is seen. There is diffuse subcutaneous edema about the foot. Scattered arterial calcifications are present. IMPRESSION: 1. Moderate patchy bony demineralization. 2. Moderate scattered degenerative changes. 3. No acute bony abnormality is detected. Electronically signed by: Eugene Parker MD (01/24/2018 2:53 PM) [facility]
--- NOTE | 2018-01-24 15:27 | RAD ---
Right lower extremity arterial duplex ultrasound study without comparison for right heel pressure ulcer. Technique and findings: Real-time grayscale and color and spectral Doppler evaluation of the arteries of the right lower extremity is performed. There is moderate atherosclerotic plaque throughout the femoral popliteal arteries. There is monophasic flow within the common femoral artery, deep femoral artery, and proximal portion of the superficial femoral artery. Peak systolic velocity of the common femoral artery is 155 cm/s, with a sharp reduction to 76.8 cm/s in the deep femoral artery. Peak systolic velocity in the proximal superficial femoral artery is 214.7 cm/s, with sharp reduction to 117 cm/s in the mid SFA. There is anglican of triphasic flow within the mid and distal SFA as well as within the popliteal artery, though there is delayed upstroke in these distributions suggesting hemodynamically significant inflow stenosis. No focal velocity abnormalities are seen below the knee. There is biphasic flow within the right peroneal artery and monophasic flow within the posterior tibial, anterior tibial, and dorsalis pedis arteries, though there is fairly rapid upstroke suggesting the presence of collateralization. IMPRESSION: 1. Moderate multifocal femoropopliteal atherosclerosis, with hemodynamically significant stenoses likely present in the right common femoral and high superficial femoral artery. Electronically signed by: Panda Hernandez MD (01/24/2018 3:24 PM) [id number]
--- NOTE | 2018-01-24 15:44 | PDOC ---
PROGRESS NOTES History of Present Illness History of Present Illness Assessment/Plan A/P: Sepsis - likely 2/2 ulcer vs UTI, will treat both empirically, cultures blood urine, and wound Altered mental status - likely encephalopathy 2/2 metabolic/sepsis and possible baseline dementia acutely worsened. will monitor, light during day, frequent redirection Right heel ulcer - Culture, wound care to see Sacral decubitus ulcer - dressing change, wound care to see. PT/OT Dysuria - frequent UTIs, will treat currently and consider chronic suppressive therapy in the future (ceftin, bactrim, methenamine, probably not nitrofurantoin with her pulmonary hx) Hypoxia - new, though previously on chest CT appears to have some chronic emphysematous changes. cont nebulizer treatments. hypokalemia heel debridement, ortho FEN - NSS, General diet PPX - Heparin FULL CODE Inpatient for sepsis likely of urinary origin vs heel ulcer, will need to return to skilled sv[facility] on d/c Vitals Vitals Vital Signs Date Time Temp Pulse Resp B/P (MAP) Pulse Ox O2 Delivery O2 Flow Rate FiO2 01/24/18 15:00 97.7 63 18 148/75 (99) 98 Room Air 97.7 01/24/18 11:00 2.0 Physical Exam General: Alert, Cooperative, No acute distress Heart: Regular rate Lungs: Clear Abdomen: Normal bowel sounds, Soft, No tenderness, No masses Extremities: No clubbing, No cyanosis, Other (1-2+ pitting edema of RLE. No warmth or erythema noted.) Skin: Other (Right heel with open ulceration. Wound bed covered with eschar. Edges not attached. Odor present. Moderate amount of serosanguinous drainage. Following written consent and application or topical lidocaine, unstable eschar and underlying slough removed. Pt tolerated without painful symptoms. No active bleeding. Following debridement wound bed 100% boggy slough with bone palpable, but not visible, at proximal aspect of wound. Wound measures 1.7x3.1x1.2cm with undermining from 9-3 with max depth of 0.7cm. Sacral/coccyx region with multiple open ulcerations. Wound beds pink and moist with minimal serosanguinous drainage. Surrounding tissue with maroon-purple discoloration which is not blanchable. Pt with multiple areas of thicked scar tissue on buttock from previous healed ulcerations. ) Labs LABS Right foot, 3 views, 01/24/2018: HISTORY: Right heel ulcer There is moderate patchy bony demineralization. There are moderate scattered degenerative changes, greatest at the first MTP joint. There is a small linear radiopaque foreign body projected over the soft tissues along the plantar aspect of the forefoot between the proximal phalanges of the second and third toes. This has appearance of an old needle or wire fragment. No acute fracture or dislocation is identified. There is soft tissue deformity along the posterior aspect of the heel compatible with the given history of a heel ulcer. No underlying destructive bony lesion is seen. There is diffuse subcutaneous edema about the foot. Scattered arterial calcifications are present. IMPRESSION: 1. Moderate patchy bony demineralization. 2. Moderate scattered degenerative changes. 3. No acute bony abnormality is detected. Electronically signed by: Eugene Parker MD (01/24/2018 2:53 PM) [facility] Laboratory Tests Test 01/23/18 15:50 01/23/18 19:45 01/24/18 05:17 White Blood Count 16.1 x10^3/uL (4.0-11.0) 14.7 x10^3/uL (4.0-11.0) Red Blood Count 4.54 x10^6/uL (3.50-5.40) 3.70 x10^6/uL (3.50-5.40) Hemoglobin 12.4 g/dL (12.0-15.5) 10.0 g/dL (12.0-15.5) Hematocrit 37.3 % (36.0-47.0) 30.4 % (36.0-47.0) Mean Corpuscular Volume 82 fL (79-100) 82 fL (79-100) Mean Corpuscular Hemoglobin 27 pg (25-35) 27 pg (25-35) Mean Corpuscular Hemoglobin Concent 33 g/dL (31-37) 33 g/dL (31-37) Red Cell Distribution Width 19.2 % (11.5-14.5) 19.8 % (11.5-14.5) Platelet Count 265 x10^3/uL (140-400) 190 x10^3/uL (140-400) Neutrophils (%) (Auto) 78 % (31-73) 73 % (31-73) Lymphocytes (%) (Auto) 11 % (24-48) 13 % (24-48) Monocytes (%) (Auto) 11 % (0-9) 13 % (0-9) Eosinophils (%) (Auto) 0 % (0-3) 0 % (0-3) Basophils (%) (Auto) 0 % (0-3) 1 % (0-3) Neutrophils # (Auto) 12.5 x10^3uL (1.8-7.7) 10.7 x10^3uL (1.8-7.7) Lymphocytes # (Auto) 1.7 x10^3/uL (1.0-4.8) 2.0 x10^3/uL (1.0-4.8) Monocytes # (Auto) 1.8 x10^3/uL (0.0-1.1) 1.9 x10^3/uL (0.0-1.1) Eosinophils # (Auto) 0.0 x10^3/uL (0.0-0.7) 0.0 x10^3/uL (0.0-0.7) Basophils # (Auto) 0.1 x10^3/uL (0.0-0.2) 0.1 x10^3/uL (0.0-0.2) Sodium Level 141 mmol/L (136-145) 140 mmol/L (136-145) Potassium Level 3.7 mmol/L (3.5-5.1) 3.1 mmol/L (3.5-5.1) Chloride Level 102 mmol/L (98-107) 105 mmol/L (98-107) Carbon Dioxide Level 28 mmol/L (21-32) 29 mmol/L (21-32) Anion Gap 11 (6-14) 6 (6-14) Blood Urea Nitrogen 15 mg/dL (7-20) 13 mg/dL (7-20) Creatinine 1.2 mg/dL (0.6-1.0) 1.0 mg/dL (0.6-1.0) Estimated GFR (Cockcroft-Gault) 52.6 64.9 BUN/Creatinine Ratio 13 (6-20) Glucose Level 119 mg/dL (70-99) 131 mg/dL (70-99) Calcium Level 8.8 mg/dL (8.5-10.1) 8.0 mg/dL (8.5-10.1) Total Bilirubin 0.5 mg/dL (0.2-1.0) Aspartate Amino Transf (AST/SGOT) 13 U/L (15-37) Alanine Aminotransferase (ALT/SGPT) 13 U/L (14-59) Alkaline Phosphatase 139 U/L (46-116) Total Protein 8.1 g/dL (6.4-8.2) Albumin 3.6 g/dL (3.4-5.0) Albumin/Globulin Ratio 0.8 (1.0-1.7) Influenza Type A Antigen Negative (NEGATIVE) Influenza Type B Antigen Negative (NEGATIVE) Nasal Screen MRSA (PCR) Positive (Negative) Segmented Neutrophils % 66 % (35-66) Band Neutrophils % 6 % (0-9) Lymphocytes % 15 % (24-48) Monocytes % 13 % (0-10) Platelet Estimate Adequate (ADEQUATE) Anisocytosis Slight Assessment and Plan Assessmemt and Plan Problems Medical Problems: (1) Decubitus ulcer Status: Acute (2) Sepsis Status: Acute Comment Review of Relevant I have reviewed the following items pablo (where applicable) has been applied. Labs Laboratory Tests Test 01/23/18 15:35 01/23/18 15:50 01/23/18 19:45 01/24/18 05:17 Urine Collection Type U cath Urine Color Yellow Urine Clarity Turbid Urine pH 5.5 Urine Specific [place] 1.015 Urine Protein 30 mg/dL (NEG-TRACE) Urine Glucose (UA) Negative mg/dL (NEG) Urine Ketones (Stick) Negative mg/dL (NEG) Urine Blood Moderate (NEG) Urine Nitrite Positive (NEG) Urine Bilirubin Negative (NEG) Urine Urobilinogen Dipstick 1.0 mg/dL (0.2 mg/dL) Urine Leukocyte Esterase Large (NEG) Urine RBC 1-2 /HPF (0-2) Urine WBC Tntc /HPF (0-4) Urine Squamous Epithelial Cells Few /LPF Urine Bacteria Many /HPF (0-FEW) Lactic Acid Level 1.0 mmol/L (0.4-2.0) White Blood Count 16.1 x10^3/uL (4.0-11.0) 14.7 x10^3/uL (4.0-11.0) Red Blood Count 4.54 x10^6/uL (3.50-5.40) 3.70 x10^6/uL (3.50-5.40) Hemoglobin 12.4 g/dL (12.0-15.5) 10.0 g/dL (12.0-15.5) Hematocrit 37.3 % (36.0-47.0) 30.4 % (36.0-47.0) Mean Corpuscular Volume 82 fL (79-100) 82 fL (79-100) Mean Corpuscular Hemoglobin 27 pg (25-35) 27 pg (25-35) Mean Corpuscular Hemoglobin Concent 33 g/dL (31-37) 33 g/dL (31-37) Red Cell Distribution Width 19.2 % (11.5-14.5) 19.8 % (11.5-14.5) Platelet Count 265 x10^3/uL (140-400) 190 x10^3/uL (140-400) Neutrophils (%) (Auto) 78 % (31-73) 73 % (31-73) Lymphocytes (%) (Auto) 11 % (24-48) 13 % (24-48) Monocytes (%) (Auto) 11 % (0-9) 13 % (0-9) Eosinophils (%) (Auto) 0 % (0-3) 0 % (0-3) Basophils (%) (Auto) 0 % (0-3) 1 % (0-3) Neutrophils # (Auto) 12.5 x10^3uL (1.8-7.7) 10.7 x10^3uL (1.8-7.7) Lymphocytes # (Auto) 1.7 x10^3/uL (1.0-4.8) 2.0 x10^3/uL (1.0-4.8) Monocytes # (Auto) 1.8 x10^3/uL (0.0-1.1) 1.9 x10^3/uL (0.0-1.1) Eosinophils # (Auto) 0.0 x10^3/uL (0.0-0.7) 0.0 x10^3/uL (0.0-0.7) Basophils # (Auto) 0.1 x10^3/uL (0.0-0.2) 0.1 x10^3/uL (0.0-0.2) Sodium Level 141 mmol/L (136-145) 140 mmol/L (136-145) Potassium Level 3.7 mmol/L (3.5-5.1) 3.1 mmol/L (3.5-5.1) Chloride Level 102 mmol/L (98-107) 105 mmol/L (98-107) Carbon Dioxide Level 28 mmol/L (21-32) 29 mmol/L (21-32) Anion Gap 11 (6-14) 6 (6-14) Blood Urea Nitrogen 15 mg/dL (7-20) 13 mg/dL (7-20) Creatinine 1.2 mg/dL (0.6-1.0) 1.0 mg/dL (0.6-1.0) Estimated GFR (Cockcroft-Gault) 52.6 64.9 BUN/Creatinine Ratio 13 (6-20) Glucose Level 119 mg/dL (70-99) 131 mg/dL (70-99) Calcium Level 8.8 mg/dL (8.5-10.1) 8.0 mg/dL (8.5-10.1) Total Bilirubin 0.5 mg/dL (0.2-1.0) Aspartate Amino Transf (AST/SGOT) 13 U/L (15-37) Alanine Aminotransferase (ALT/SGPT) 13 U/L (14-59) Alkaline Phosphatase 139 U/L (46-116) Total Protein 8.1 g/dL (6.4-8.2) Albumin 3.6 g/dL (3.4-5.0) Albumin/Globulin Ratio 0.8 (1.0-1.7) Influenza Type A Antigen Negative (NEGATIVE) Influenza Type B Antigen Negative (NEGATIVE) Nasal Screen MRSA (PCR) Positive (Negative) Segmented Neutrophils % 66 % (35-66) Band Neutrophils % 6 % (0-9) Lymphocytes % 15 % (24-48) Monocytes % 13 % (0-10) Platelet Estimate Adequate (ADEQUATE) Anisocytosis Slight Laboratory Tests Test 01/23/18 15:50 01/23/18 19:45 01/24/18 05:17 White Blood Count 16.1 x10^3/uL (4.0-11.0) 14.7 x10^3/uL (4.0-11.0) Red Blood Count 4.54 x10^6/uL (3.50-5.40) 3.70 x10^6/uL (3.50-5.40) Hemoglobin 12.4 g/dL (12.0-15.5) 10.0 g/dL (12.0-15.5) Hematocrit 37.3 % (36.0-47.0) 30.4 % (36.0-47.0) Mean Corpuscular Volume 82 fL (79-100) 82 fL (79-100) Mean Corpuscular Hemoglobin 27 pg (25-35) 27 pg (25-35) Mean Corpuscular Hemoglobin Concent 33 g/dL (31-37) 33 g/dL (31-37) Red Cell Distribution Width 19.2 % (11.5-14.5) 19.8 % (11.5-14.5) Platelet Count 265 x10^3/uL (140-400) 190 x10^3/uL (140-400) Neutrophils (%) (Auto) 78 % (31-73) 73 % (31-73) Lymphocytes (%) (Auto) 11 % (24-48) 13 % (24-48) Monocytes (%) (Auto) 11 % (0-9) 13 % (0-9) Eosinophils (%) (Auto) 0 % (0-3) 0 % (0-3) Basophils (%) (Auto) 0 % (0-3) 1 % (0-3) Neutrophils # (Auto) 12.5 x10^3uL (1.8-7.7) 10.7 x10^3uL (1.8-7.7) Lymphocytes # (Auto) 1.7 x10^3/uL (1.0-4.8) 2.0 x10^3/uL (1.0-4.8) Monocytes # (Auto) 1.8 x10^3/uL (0.0-1.1) 1.9 x10^3/uL (0.0-1.1) Eosinophils # (Auto) 0.0 x10^3/uL (0.0-0.7) 0.0 x10^3/uL (0.0-0.7) Basophils # (Auto) 0.1 x10^3/uL (0.0-0.2) 0.1 x10^3/uL (0.0-0.2) Sodium Level 141 mmol/L (136-145) 140 mmol/L (136-145) Potassium Level 3.7 mmol/L (3.5-5.1) 3.1 mmol/L (3.5-5.1) Chloride Level 102 mmol/L (98-107) 105 mmol/L (98-107) Carbon Dioxide Level 28 mmol/L (21-32) 29 mmol/L (21-32) Anion Gap 11 (6-14) 6 (6-14) Blood Urea Nitrogen 15 mg/dL (7-20) 13 mg/dL (7-20) Creatinine 1.2 mg/dL (0.6-1.0) 1.0 mg/dL (0.6-1.0) Estimated GFR (Cockcroft-Gault) 52.6 64.9 BUN/Creatinine Ratio 13 (6-20) Glucose Level 119 mg/dL (70-99) 131 mg/dL (70-99) Calcium Level 8.8 mg/dL (8.5-10.1) 8.0 mg/dL (8.5-10.1) Total Bilirubin 0.5 mg/dL (0.2-1.0) Aspartate Amino Transf (AST/SGOT) 13 U/L (15-37) Alanine Aminotransferase (ALT/SGPT) 13 U/L (14-59) Alkaline Phosphatase 139 U/L (46-116) Total Protein 8.1 g/dL (6.4-8.2) Albumin 3.6 g/dL (3.4-5.0) Albumin/Globulin Ratio 0.8 (1.0-1.7) Influenza Type A Antigen Negative (NEGATIVE) Influenza Type B Antigen Negative (NEGATIVE) Nasal Screen MRSA (PCR) Positive (Negative) Segmented Neutrophils % 66 % (35-66) Band Neutrophils % 6 % (0-9) Lymphocytes % 15 % (24-48) Monocytes % 13 % (0-10) Platelet Estimate Adequate (ADEQUATE) Anisocytosis Slight Medications Current Medications Acetaminophen (Tylenol) 1,000 mg 1X ONCE PO Last administered on 01/23/18at 16 :25; Start 01/23/18 at 16:00; Stop 01/23/18 at 16:01; Status DC Sodium Chloride 1,000 ml @ 100 mls/hr Q10H IV Last administered on 01/23/18at 16:25; Start 01/23/18 at 15:54; Stop 01/23/18 at 19:50; Status DC Ciprofloxacin/ Dextrose 200 ml @ 200 mls/hr Q12HR IV Last administered on at 06:01; Start 01/24/18 at 06:00; Stop 01/24/18 at 09:35; Status DC Meropenem 1 gm/ Sodium Chloride 100 ml @ 200 mls/hr Q12HR IV Last administered on 01/24/18at 06:01; Start 01/24/18 at 06:00 Vancomycin HCl 250 ml @ 250 mls/hr 1X ONCE IV ; Start 01/23/18 at 16:15; Stop 01/23/18 at 17:14; Status UNV Ciprofloxacin/ Dextrose 200 ml @ 200 mls/hr 1X ONCE IV Last administered on 01/23/18at 16:26; Start 01/23/18 at 16:15; Stop 01/23/18 at 17:14; Status DC Meropenem 1 gm/ Sodium Chloride 100 ml @ 200 mls/hr 1X ONCE IV Last administered on 01/23/18at 17:45; Start 01/23/18 at 16:15; Stop 01/23/18 at 16 :44; Status DC Vancomycin HCl 2 gm/Sodium Chloride 500 ml @ 250 mls/hr 1X ONCE IV Last administered on 01/23/18at 18:47; Start 01/23/18 at 16:15; Stop 01/23/18 at 18 :14; Status DC Acetaminophen (Tylenol) 650 mg PRN Q6HRS PRN PO MILD PAIN Last administered on 01/24/18at 12:10; Start 01/23/18 at 19:30 Tramadol HCl (Ultram) 50 mg PRN Q6HRS PRN PO MODERATE PAIN Last administered on 01/23/18at 19:49; Start 01/23/18 at 19:30 Acetaminophen/ Hydrocodone Bitart (Lortab 5/325) 1 tab PRN Q6HRS PRN PO SEVERE PAIN Last administered on 01/24/18at 05:18; Start 01/23/18 at 19:30 Ringer's Solution 1,000 ml @ 999 mls/hr 1X ONCE IV Last administered on 01/23at 19:53; Start 01/23/18 at 20:00; Stop 01/23/18 at 21:00; Status DC Ringer's Solution 1,000 ml @ 100 mls/hr Q10H IV Last administered on at 21:27; Start 01/23/18 at 21:00; Stop 01/24/18 at 06:38; Status DC Potassium Chloride/Sodium Chloride 1,000 ml @ 100 mls/hr Q10H IV Last administered on 01/24/18at 06:00; Start 01/23/18 at 23:00 Ondansetron HCl (Zofran) 4 mg PRN Q6HRS PRN IV NAUSEA/VOMITING Last administered on 01/23/18at 23:30; Start 01/23/18 at 22:45 Acetaminophen (Tylenol) 650 mg PRN Q6HRS PRN PO Headaches, Temp > 101.5F; Start 01/23/18 at 22:45; Stop 01/24/18 at 07:02; Status DC Senna/Docusate Sodium (Senna Plus) 1 tab BID PO Last administered on at 08:17; Start 01/24/18 at 09:00 Heparin Sodium (Porcine) (Heparin Sodium) 5,000 unit Q12HR SQ Last administered on 01/24/18at 08:20; Start 01/24/18 at 09:00 Bisacodyl (Dulcolax Tab) 10 mg PRN DAILY PRN PO CONSTIPATION; Start 01/23/18 at 22:45 Buspirone HCl (Buspar) 5 mg DAILY PO Last administered on 01/24/18at 08:17; Start 01/24/18 at 09:00 Lactobacillus Rhamnosus (Culturelle) 1 cap BID PO Last administered on at 08:17; Start 01/24/18 at 09:00 Tamsulosin HCl (Flomax) 0.4 mg HS PO ; Start 01/24/18 at 21:00 Acetaminophen/ Aspirin/Caffeine (Excedrin Migraine) 1 tab PRN Q6HRS PRN PO MIGRAINE HEADACHE Last administered on 01/24/18at 08:16; Start 01/24/18 at 07: 15 Non-Formulary Medication (Menthol/Zinc Oxide (Calmoseptine Ointment)) 3.5 gm TID PRN TP SKIN PROTECTION; Start 01/23/18 at 22:45; Status UNV Polyethylene Glycol (miraLAX PACKET) 17 gm DAILY PO ; Start 01/24/18 at 09:00 Famotidine (Pepcid) 20 mg DAILY PO Last administered on 01/24/18at 08:17; Start 01/24/18 at 09:00 Active Scripts Active Culturelle (Lactobacillus Rhamnosus Gg) 1 Each Cap.sprink 1 Cap PO BID 14 Days Cefpodoxime Proxetil 100 Mg Tablet 200 Mg PO BID 10 Days Reported Calmoseptine Ointment (Menthol/Zinc Oxide) 3.5 Gm Oint.pack 3.5 Gm TP TID PRN Dulcolax (Bisacodyl) 5 Mg Tablet.dr 10 Mg IA PRN DAILY PRN Anacin 400-32 Mg Tablet (Aspirin/Caffeine) 1 Each Tablet 1 Each PO Q6HRS PRN Milk Of Magnesia (Magnesium Hydroxide) 400 Mg/5 Ml Oral.susp 400 Mg PO DAILY PRN Cyclobenzaprine Hcl 5 Mg Tablet 1 Tab PO QHS Senna-Docusate Sodium Tablet (Sennosides/Docusate Sodium) 1 Each Tablet 1 Each PO DAILY Zantac (Ranitidine Hcl) 150 Mg Tablet 150 Mg PO DAILY Xanax (Alprazolam) 0.25 Mg Tablet 1 Tab PO HS Furosemide 40 Mg Tablet 1 Tab PO DAILY Miralax (Polyethylene Glycol 3350) 17 Gm Powd.pack 1 Packet PO DAILY Tamsulosin Hcl 0.4 Mg Cap.er.24h 0.4 Mg PO HS Gabapentin 600 Mg Tablet 600 Mg PO BID Gabapentin 100 Mg Capsule 100 Mg PO HS Buspirone Hcl 5 Mg Tablet 5 Mg PO DAILY Vitals/I & O Vital Sign - Last 24 Hours 01/23/18 01/23/18 01/23/18 01/23/18 16:00 16:30 17:00 17:30 Pulse 102 94 96 94 Resp B/P (MAP) 127/67 (87) 131/71 (91) 138/66 (90) 138/99 (112) Pulse Ox 96 96 96 95 O2 Delivery Nasal Cannula Nasal Cannula Nasal Cannula Nasal Cannula O2 Flow Rate 2.0 2.0 2.0 2.0 01/23/18 01/23/18 01/23/18 01/23/18 18:00 19:00 19:49 20:30 Temp 99.0 99.0 Pulse 90 84 Resp 20 20 B/P (MAP) 135/67 (89) 86/51 (63) Pulse Ox 95 99 O2 Delivery Nasal Cannula Nasal Cannula Nasal Cannula Nasal Cannula O2 Flow Rate 2.0 2.0 2.0 01/23/18 01/23/18 01/24/18 01/24/18 21:33 23:00 02:40 05:17 Temp 99.1 100.9 99.1 100.9 Pulse 89 54 95 79 Resp 18 18 18 18 B/P (MAP) 146/71 (96) 142/72 (95) 130/71 (90) 120/63 (82) Pulse Ox 99 99 92 96 O2 Delivery Nasal Cannula Nasal Cannula Nasal Cannula Nasal Cannula O2 Flow Rate 2.0 2.0 2.0 2.0 01/24/18 01/24/18 01/24/18 01/24/18 05:18 06:20 07:00 07:20 Temp 98.3 98.3 Pulse 74 Resp 18 B/P (MAP) 132/75 (94) Pulse Ox 96 96 96 O2 Delivery Nasal Cannula Nasal Cannula Room Air Nasal Cannula O2 Flow Rate 2.0 2.0 2.0 01/24/18 01/24/18 11:00 15:00 Temp 98.1 97.7 98.1 97.7 Pulse 100 63 Resp 18 18 B/P (MAP) 126/66 (86) 148/75 (99) Pulse Ox 100 98 O2 Delivery Nasal Cannula Room Air O2 Flow Rate 2.0 Intake and Output 01/23/18 01/23/18 01/24/18 15:00 23:00 07:00 Intake Total 1420 ml 1220 ml Balance 1420 ml 1220 ml ARVIND PEREZ MD Jan 24, 2018 15:44
[2018-01-24] MEDS: ONDANSETRON PF 4 MG/2 ML VIAL. IV PRN (15:53)
[2018-01-24] MEDS ORDERED: POTASSIUM CHLORIDE 20 MEQ TABLET.ER. PO ONE (16:00)
[2018-01-24] MEDS ORDERED: VANCOMYCIN PER PHARMACY MC PRN (16:30)
[2018-01-24 17:43] LABS: PROTHROMBIN TIME PATIENT 15.2 SEC (11.7-14.0)
[2018-01-24] MEDS: VANCOMYCIN 1.25 GM in IV NORMAL SALINE 250ML 250 ML IV SCH (17:50)
[2018-01-24] MEDS: TAMSULOSIN 0.4 MG CAP.ER.24H. PO SCH (21:00)
[2018-01-24] MEDS: traMADol 50 MG TABLET PO PRN (21:30)
[2018-01-25] MEDS ORDERED: OXYC15TA PO (00:09)
[2018-01-25] MEDS ORDERED: oxyCODONE IR 5 MG TABLET PO PRN (00:15)
[2018-01-25] MEDS: ACETAMINOPHEN 325 MG TABLET. PO PRN (01:41)
[2018-01-25 03:17] VITALS: BP 148/73
[2018-01-25 07:00] VITALS: BP 174/90
[2018-01-25] MEDS: POLYETHYLENE GLYCOL 3350 17 GM PACKET. PO SCH (09:00)
[2018-01-25] MEDS: MEROPENEM 1 GM in IV NORMAL SALINE 100ML 100 ML IV SCH ×2 (09:00→22:00)
[2018-01-25] MEDS: SENNOSIDES/DOCUSATE 8.6/50MG TABLET. PO SCH ×2 (09:00→21:00)
[2018-01-25] MEDS: HEPARIN for SUB-Q USE 5,000 UNIT/ML VIAL. SQ SCH ×2 (09:00→21:00)
--- NOTE | 2018-01-25 09:04 | PDOC ---
Infectious Disease Note Subjective Subjective pt is agitated at times, wants other part of hospital ROS ROS no n/v/d/sob Vital Sign Vital Signs Vital Signs Date Time Temp Pulse Resp B/P (MAP) Pulse Ox O2 Delivery O2 Flow Rate FiO2 01/25/18 07:00 98.1 81 16 174/90 (118) 96 Nasal Cannula 2.0 98.1 Physical Exam PHYSICAL EXAM GENERAL: Alert and oriented female, not in any distress. VITAL SIGNS: Stable HEENT: Anicteric. NECK: Supple, no JVP, no lymphadenopathy. LUNGS: Clear. HEART: S1, S2 regular. ABDOMEN: Benign. EXTREMITIES: She cannot use at all any much of lower extremity other than the very slight foot movement she can do. She does have a right calcaneal wound, which is a black eschar softening up. Sacral breakdown is very minor skin breakdown. Labs Lab Laboratory Tests Test 01/24/18 17:20 Prothrombin Time 15.2 SEC (11.7-14.0) Prothromb Time International Ratio 1.3 (0.8-1.1) Activated Partial Thromboplast Time 38 SEC (24-38) Objective Assessment Rt calcaneal ulcer,, after eschar removal is almost to bone as per wound care [employer]PER[employer] Fever UTI Sacral decub Debility Paraplegia PAD Plan Plan of Care cont vanc and meropenem check cultures supportive care HUMBERTO JOHNSTON MD Jan 25, 2018 09:04
[2018-01-25] MEDS ORDERED: LORazepam 0.5 MG TABLET PO ONE (09:15)
[2018-01-25] MEDS: busPIRone 5 MG TABLET. PO SCH (09:34)
[2018-01-25] MEDS: FAMOTIDINE 20 MG TABLET. PO SCH (09:34)
[2018-01-25] MEDS: LACTOBACILLUS RHAMNOSUS GG 1 CAPSULE. PO SCH ×2 (09:34→21:00)
[2018-01-25] MEDS: risperiDONE 1 MG TABLET. PO SCH ×2 (09:34→21:35)
[2018-01-25] MEDS: HYDROcodone/APAP 5/325MG 1 TAB TABLET PO PRN ×2 (09:35→21:34)
[2018-01-25 11:00] VITALS: BP 164/89
--- NOTE | 2018-01-25 13:39 | PDOC2 ---
CONSULT Date of Consult Date of Consult DATE: 01/25/18 TIME: 13:30 Reason for Consult Reason for Consult: chronic heel wound right foot Referring Physician Referring Physician: hospitalist Identification/Chief Complaint Chief Complaint chronic decubitus ulcer right heel Source Source: Chart review, Patient History of Present Illness Reason for Visit: Patient is a 77 year old female seen bedside complains of chronic non painful ulceration to right heel. She states ulceration present x 2-3 years. She denies nausea, vomitting, fever, chills. She is unsure how the wound started or how it has been treated. She is non ambulatory Past Medical History Cardiovascular: HTN Pulmonary: No pertinent hx GI: No pertinent hx Heme/Onc: No pertinent hx Hepatobiliary: No pertinent hx Psych: No pertinent hx Rheumatologic: No pertinent hx, Other Infectious disease: Other Renal/: UTI Endocrine: No pertinent hx Past Surgical History Past Surgical History: No pertinent history Family History Family History: Hypertension Social History ALCOHOL: rare Drugs: None Current Problem List Problem List Problems Medical Problems: (1) Decubitus ulcer Status: Acute (2) Sepsis Status: Acute Current Medications Current Medications Current Medications Acetaminophen (Tylenol) 1,000 mg 1X ONCE PO Last administered on 01/23/18at 16 :25; Start 01/23/18 at 16:00; Stop 01/23/18 at 16:01; Status DC Sodium Chloride 1,000 ml @ 100 mls/hr Q10H IV Last administered on 01/23/18at 16:25; Start 01/23/18 at 15:54; Stop 01/23/18 at 19:50; Status DC Ciprofloxacin/ Dextrose 200 ml @ 200 mls/hr Q12HR IV Last administered on at 06:01; Start 01/24/18 at 06:00; Stop 01/24/18 at 09:35; Status DC Meropenem 1 gm/ Sodium Chloride 100 ml @ 200 mls/hr Q12HR IV Last administered on 01/24/18at 21:30; Start 01/24/18 at 06:00 Vancomycin HCl 250 ml @ 250 mls/hr 1X ONCE IV ; Start 01/23/18 at 16:15; Stop 01/23/18 at 17:14; Status UNV Ciprofloxacin/ Dextrose 200 ml @ 200 mls/hr 1X ONCE IV Last administered on 01/23/18at 16:26; Start 01/23/18 at 16:15; Stop 01/23/18 at 17:14; Status DC Meropenem 1 gm/ Sodium Chloride 100 ml @ 200 mls/hr 1X ONCE IV Last administered on 01/23/18at 17:45; Start 01/23/18 at 16:15; Stop 01/23/18 at 16 :44; Status DC Vancomycin HCl 2 gm/Sodium Chloride 500 ml @ 250 mls/hr 1X ONCE IV Last administered on 01/23/18at 18:47; Start 01/23/18 at 16:15; Stop 01/23/18 at 18 :14; Status DC Acetaminophen (Tylenol) 650 mg PRN Q6HRS PRN PO MILD PAIN Last administered on 01/25/18at 01:41; Start 01/23/18 at 19:30 Tramadol HCl (Ultram) 50 mg PRN Q6HRS PRN PO MODERATE PAIN Last administered on 01/24/18at 21:30; Start 01/23/18 at 19:30 Acetaminophen/ Hydrocodone Bitart (Lortab 5/325) 1 tab PRN Q6HRS PRN PO SEVERE PAIN Last administered on 01/25/18at 09:35; Start 01/23/18 at 19:30 Ringer's Solution 1,000 ml @ 999 mls/hr 1X ONCE IV Last administered on 01/23at 19:53; Start 01/23/18 at 20:00; Stop 01/23/18 at 21:00; Status DC Ringer's Solution 1,000 ml @ 100 mls/hr Q10H IV Last administered on at 21:27; Start 01/23/18 at 21:00; Stop 01/24/18 at 06:38; Status DC Potassium Chloride/Sodium Chloride 1,000 ml @ 100 mls/hr Q10H IV Last administered on 01/24/18at 16:03; Start 01/23/18 at 23:00 Ondansetron HCl (Zofran) 4 mg PRN Q6HRS PRN IV NAUSEA/VOMITING Last administered on 01/24/18at 15:53; Start 01/23/18 at 22:45 Acetaminophen (Tylenol) 650 mg PRN Q6HRS PRN PO Headaches, Temp > 101.5F; Start 01/23/18 at 22:45; Stop 01/24/18 at 07:02; Status DC Senna/Docusate Sodium (Senna Plus) 1 tab BID PO Last administered on at 08:17; Start 01/24/18 at 09:00 Heparin Sodium (Porcine) (Heparin Sodium) 5,000 unit Q12HR SQ Last administered on 01/24/18at 08:20; Start 01/24/18 at 09:00 Bisacodyl (Dulcolax Tab) 10 mg PRN DAILY PRN PO CONSTIPATION; Start 01/23/18 at 22:45 Buspirone HCl (Buspar) 5 mg DAILY PO Last administered on 01/25/18at 09:34; Start 01/24/18 at 09:00 Lactobacillus Rhamnosus (Culturelle) 1 cap BID PO Last administered on at 09:34; Start 01/24/18 at 09:00 Tamsulosin HCl (Flomax) 0.4 mg HS PO Last administered on 01/24/18at 21:00; Start 01/24/18 at 21:00 Acetaminophen/ Aspirin/Caffeine (Excedrin Migraine) 1 tab PRN Q6HRS PRN PO MIGRAINE HEADACHE Last administered on 01/24/18at 08:16; Start 01/24/18 at 07: 15 Non-Formulary Medication (Menthol/Zinc Oxide (Calmoseptine Ointment)) 3.5 gm TID PRN TP SKIN PROTECTION; Start 01/23/18 at 22:45; Status UNV Polyethylene Glycol (miraLAX PACKET) 17 gm DAILY PO ; Start 01/24/18 at 09:00 Famotidine (Pepcid) 20 mg DAILY PO Last administered on 01/25/18at 09:34; Start 01/24/18 at 09:00 Potassium Chloride (Klor-Con) 40 meq 1X ONCE PO Last administered on at 15:55; Start 01/24/18 at 16:00; Stop 01/24/18 at 16:01; Status DC Vancomycin HCl (Vanco Per Pharmacy) 1 each PRN DAILY PRN MC SEE COMMENTS Last administered on 01/24/18at 16:22; Start 01/24/18 at 16:30 Vancomycin HCl 1.25 gm/Sodium Chloride 250 ml @ 167 mls/hr Q24H IV Last administered on 01/24/18at 17:50; Start 01/24/18 at 18:00 Vancomycin HCl (Vancomycin Trough Level) 1 each 1X ONCE MC ; Start 01/25/18 at 17:30; Stop 01/25/18 at 17:31 Oxycodone HCl (Roxicodone) 22.5 mg PRN Q8HRS PRN PO PAIN; Start 01/25/18 at 00 :15 Lorazepam (Ativan) 0.5 mg 1X ONCE PO Last administered on 01/25/18at 09:34; Start 01/25/18 at 09:15; Stop 01/25/18 at 09:16; Status DC Risperidone (RisperDAL) 0.5 mg BID PO Last administered on 01/25/18at 09:34; Start 01/25/18 at 09:15 Active Scripts Active Culturelle (Lactobacillus Rhamnosus Gg) 1 Each Cap.sprink 1 Cap PO BID 14 Days Cefpodoxime Proxetil 100 Mg Tablet 200 Mg PO BID 10 Days Reported Oxycodone Hcl 15 Mg Tablet 1.5 Mg PO PRN Q8HRS PRN Calmoseptine Ointment (Menthol/Zinc Oxide) 3.5 Gm Oint.pack 3.5 Gm TP TID PRN Dulcolax (Bisacodyl) 5 Mg Tablet.dr 10 Mg [place] PRN DAILY PRN Anacin 400-32 Mg Tablet (Aspirin/Caffeine) 1 Each Tablet 1 Each PO Q6HRS PRN Milk Of Magnesia (Magnesium Hydroxide) 400 Mg/5 Ml Oral.susp 400 Mg PO DAILY PRN Cyclobenzaprine Hcl 5 Mg Tablet 1 Tab PO QHS Senna-Docusate Sodium Tablet (Sennosides/Docusate Sodium) 1 Each Tablet 1 Each PO DAILY Zantac (Ranitidine Hcl) 150 Mg Tablet 150 Mg PO DAILY Xanax (Alprazolam) 0.25 Mg Tablet 1 Tab PO HS Furosemide 40 Mg Tablet 1 Tab PO DAILY Miralax (Polyethylene Glycol 3350) 17 Gm Powd.pack 1 Packet PO DAILY Tamsulosin Hcl 0.4 Mg Cap.er.24h 0.4 Mg PO HS Gabapentin 600 Mg Tablet 600 Mg PO BID Gabapentin 100 Mg Capsule 100 Mg PO HS Buspirone Hcl 5 Mg Tablet 5 Mg PO DAILY Allergies Allergies: Coded Allergies: Penicillins (Verified Allergy, Intermediate, HAS TOLERATED CEFTRIAXONE, 5/ 4/18) I S O L A T I O N *CONTACT* (Verified Allergy, Unknown, 07/21/16) mrsa ROS General: No: Chills, Night Sweats, Fatigue, Malaise, Appetite, Other PSYCHOLOGICAL ROS: YES: Irritablity, Other (states "doctors are just trying to take her money:") Eyes: No Blurry vision, No Decreased vision, No Double vision, No Dry eyes, No Excessive tearing, No Eye Pain, No Itchy Eyes, No Loss of vision, No Photophobia , No Scotomata, No Uses contacts, No Uses glasses, No Other HEENT: No: Heacaches, Visual Changes, Hearing change, Nasal congestion, Nasal discharge, Oral lesions, Sinus pain, Sore Throat, Epistaxis, Sneezing, Snoring, Tinnitus, Vertigo, Vocal changes, Other ALLERGY AND IMMUNOLOGY: No: Hives, Insect Bite Sensitivity, Itchy/Watery Eyes, Nasal Congestion, Post Nasal Drip, Seasonal Allergies, Other Hematological and Lymphatic: No: Bleeding Problems, Blood Clots, Blood Transfusions, Brusing, Night Sweats, Pallor, Swollen Lymph Nodes, Other ENDOCRINE: No: Breast Changes, Galactorrhea, Hair Pattern Changes, Hot Flashes , Malaise/lethargy, Mood Swings, Palpitations, Polydipsia/polyuria, Skin Changes , Temperature Intolerance, Unexpected Weight Changes, Other Breast: No New/Changing Breast Lumps, No Nipple changes, No Nipple discharge, No Other Respiratory: No: Cough, Hemoptysis, Orthopnea, Pleuritic Pain, Shortness of breath, SOB with excertion, Sputum Changes, Stridor, Tachypnea, Wheezing, Other Cardiovascular: No Chest Pain, No Palpitations, No Orthopnea, No Paroxysmal Noc. Dyspnea, No Edema, No Lt Headedness, No Other Gastrointestinal: No Nausea, No Vomiting, No Abdominal Pain, No Diarrhea, No Constipation, No Melena, No Hematochezia, No Other Musculoskeletal: Yes Gait Disturbance, Yes Muscular Weakness Neurological: Yes Confusion, Yes Gait Disturbance, Yes Memory Loss Skin: Yes Other (chronic heel wound right) Physical Exam Physical Exam Lower extremity: Skin is cool,xerotic, atrophic. Decreased turgor. full thickness ulceration plantar medial right heel with adipose tissue exposed, + probe to bone. +mal odor. Mild periwound hyperpigmentation. No cellulitis. no calor. no pustular drainage. no other discontinuity of skin noted. DP and PT non palpable. CFT is less than 3 seconds. Muscle strength is 3/5. patient is immobile General: Alert, No acute distress Vitals VITALS Vital Signs Date Time Temp Pulse Resp B/P (MAP) Pulse Ox O2 Delivery O2 Flow Rate FiO2 01/25/18 11:00 98.1 71 16 164/89 (114) 100 Room Air 98.1 01/25/18 07:00 2.0 Labs Labs Laboratory Tests Test 01/23/18 15:35 01/23/18 15:50 01/23/18 19:45 01/24/18 05:17 Urine Collection Type U cath Urine Color Yellow Urine Clarity Turbid Urine pH 5.5 Urine Specific [place] 1.015 Urine Protein 30 mg/dL (NEG-TRACE) Urine Glucose (UA) Negative mg/dL (NEG) Urine Ketones (Stick) Negative mg/dL (NEG) Urine Blood Moderate (NEG) Urine Nitrite Positive (NEG) Urine Bilirubin Negative (NEG) Urine Urobilinogen Dipstick 1.0 mg/dL (0.2 mg/dL) Urine Leukocyte Esterase Large (NEG) Urine RBC 1-2 /HPF (0-2) Urine WBC Tntc /HPF (0-4) Urine Squamous Epithelial Cells Few /LPF Urine Bacteria Many /HPF (0-FEW) Lactic Acid Level 1.0 mmol/L (0.4-2.0) White Blood Count 16.1 x10^3/uL (4.0-11.0) 14.7 x10^3/uL (4.0-11.0) Red Blood Count 4.54 x10^6/uL (3.50-5.40) 3.70 x10^6/uL (3.50-5.40) Hemoglobin 12.4 g/dL (12.0-15.5) 10.0 g/dL (12.0-15.5) Hematocrit 37.3 % (36.0-47.0) 30.4 % (36.0-47.0) Mean Corpuscular Volume 82 fL (79-100) 82 fL (79-100) Mean Corpuscular Hemoglobin 27 pg (25-35) 27 pg (25-35) Mean Corpuscular Hemoglobin Concent 33 g/dL (31-37) 33 g/dL (31-37) Red Cell Distribution Width 19.2 % (11.5-14.5) 19.8 % (11.5-14.5) Platelet Count 265 x10^3/uL (140-400) 190 x10^3/uL (140-400) Neutrophils (%) (Auto) 78 % (31-73) 73 % (31-73) Lymphocytes (%) (Auto) 11 % (24-48) 13 % (24-48) Monocytes (%) (Auto) 11 % (0-9) 13 % (0-9) Eosinophils (%) (Auto) 0 % (0-3) 0 % (0-3) Basophils (%) (Auto) 0 % (0-3) 1 % (0-3) Neutrophils # (Auto) 12.5 x10^3uL (1.8-7.7) 10.7 x10^3uL (1.8-7.7) Lymphocytes # (Auto) 1.7 x10^3/uL (1.0-4.8) 2.0 x10^3/uL (1.0-4.8) Monocytes # (Auto) 1.8 x10^3/uL (0.0-1.1) 1.9 x10^3/uL (0.0-1.1) Eosinophils # (Auto) 0.0 x10^3/uL (0.0-0.7) 0.0 x10^3/uL (0.0-0.7) Basophils # (Auto) 0.1 x10^3/uL (0.0-0.2) 0.1 x10^3/uL (0.0-0.2) Sodium Level 141 mmol/L (136-145) 140 mmol/L (136-145) Potassium Level 3.7 mmol/L (3.5-5.1) 3.1 mmol/L (3.5-5.1) Chloride Level 102 mmol/L (98-107) 105 mmol/L (98-107) Carbon Dioxide Level 28 mmol/L (21-32) 29 mmol/L (21-32) Anion Gap 11 (6-14) 6 (6-14) Blood Urea Nitrogen 15 mg/dL (7-20) 13 mg/dL (7-20) Creatinine 1.2 mg/dL (0.6-1.0) 1.0 mg/dL (0.6-1.0) Estimated GFR (Cockcroft-Gault) 52.6 64.9 BUN/Creatinine Ratio 13 (6-20) Glucose Level 119 mg/dL (70-99) 131 mg/dL (70-99) Calcium Level 8.8 mg/dL (8.5-10.1) 8.0 mg/dL (8.5-10.1) Total Bilirubin 0.5 mg/dL (0.2-1.0) Aspartate Amino Transf (AST/SGOT) 13 U/L (15-37) Alanine Aminotransferase (ALT/SGPT) 13 U/L (14-59) Alkaline Phosphatase 139 U/L (46-116) Total Protein 8.1 g/dL (6.4-8.2) Albumin 3.6 g/dL (3.4-5.0) Albumin/Globulin Ratio 0.8 (1.0-1.7) Influenza Type A Antigen Negative (NEGATIVE) Influenza Type B Antigen Negative (NEGATIVE) Nasal Screen MRSA (PCR) Positive (Negative) Segmented Neutrophils % 66 % (35-66) Band Neutrophils % 6 % (0-9) Lymphocytes % 15 % (24-48) Monocytes % 13 % (0-10) Platelet Estimate Adequate (ADEQUATE) Anisocytosis Slight Test 01/24/18 17:20 Prothrombin Time 15.2 SEC (11.7-14.0) Prothromb Time International Ratio 1.3 (0.8-1.1) Activated Partial Thromboplast Time 38 SEC (24-38) Laboratory Tests Test 01/24/18 17:20 Prothrombin Time 15.2 SEC (11.7-14.0) Prothromb Time International Ratio 1.3 (0.8-1.1) Activated Partial Thromboplast Time 38 SEC (24-38) Images Images Per report: There is moderate patchy bony demineralization. There are moderate scattered degenerative changes, greatest at the first MTP joint. There is a small linear radiopaque foreign body projected over the soft tissues along the plantar aspect of the forefoot between the proximal phalanges of the second and third toes. This has appearance of an old needle or wire fragment. No acute fracture or dislocation is identified. There is soft tissue deformity along the posterior aspect of the heel compatible with the given history of a heel ulcer. No underlying destructive bony lesion is seen. There is diffuse subcutaneous edema about the foot. Scattered arterial calcifications are present. IMPRESSION: 1. Moderate patchy bony demineralization. 2. Moderate scattered degenerative changes. 3. No acute bony abnormality is detected. Assessment/Plan Assessment/Plan 77 year old female with chronic decubitus ulceration right heel adipose exposed , peripheral vascular disease -Debrided wound full thickness skin with scapel and pickups of devitalized tissue to patient tolerance. wound measures 1x1x0.3cm with no signs of acute infection. Begin daily light betadine gauze dressing -Ordered MRI right foot to evaluate for underlying osteomyelitis -Angio ordered today. Recommend evaluation and possible intervention pending findings -Continue strict decubitus precautions -Ulceration is stable at this time however consider application of wound vac and possible allograft due to duration and location if MRI is negative for osteomyelitis ANNA GREEN DPM Jan 25, 2018 13:39
[2018-01-25 15:00] VITALS: BP 129/70
--- NOTE | 2018-01-25 15:22 | PDOC ---
PROGRESS NOTES Chief Complaint Chief Complaint Sepsis, likely 2/2 ulcer vs UTI Altered mental status, likely encephalopathy 2/2 metabolic/sepsis and possible baseline dementia acutely worsened Right heel ulcer Sacral decubitus ulcer Acute hypoxia Acute hypokalemia Dysuria/frequent UTIs H/o HTN H/o emphysema H/o COPD H/o PAD H/o paraplegia H/o debility History of Present Illness History of Present Illness Pt seen and examined Pt sitting upright in bed and expressed strong desire to leave the hospital Discussed w/RN, health and social care teacher and palliative care RN stated that the pt is refusing labs and further workup/treatment, including arteriogram Vitals Vitals Vital Signs Date Time Temp Pulse Resp B/P (MAP) Pulse Ox O2 Delivery O2 Flow Rate FiO2 01/25/18 11:00 98.1 71 16 164/89 (114) 100 Room Air 98.1 01/25/18 07:00 2.0 Physical Exam Physical Exam HEENT: Anicteric Neck: Supple, no JVP, no lymphadenopathy Extremities: Pt cannot use much of her lower extremity other than very slight foot movement. Right calcaneal wound bandage was clean, dry and intact General: Alert, No acute distress Heart: Regular rate, Normal S1, Normal S2 Lungs: Clear Abdomen: Normal bowel sounds, No tenderness Extremities: Other (1-2+ pitting edema of RLE. No warmth or erythema noted.) Skin: Other (Right heel ulceration. Sacral/coccyx region with multiple open ulcerations ) Labs LABS Laboratory Tests Test 01/24/18 17:20 Prothrombin Time 15.2 SEC (11.7-14.0) Prothromb Time International Ratio 1.3 (0.8-1.1) Activated Partial Thromboplast Time 38 SEC (24-38) Review of Systems Review of Systems Pt c/o hunger and strong desire to leave the hospital Denies chest pain, SOB Assessment and Plan Assessmemt and Plan Problems Medical Problems: (1) Decubitus ulcer Status: Acute (2) Sepsis Status: Acute Assessment: Sepsis, likely 2/2 ulcer vs UTI Altered mental status, likely encephalopathy 2/2 metabolic/sepsis and possible baseline dementia acutely worsened Right heel ulcer Sacral decubitus ulcer Acute hypoxia Acute hypokalemia Dysuria/frequent UTIs H/o emphysema H/o COPD H/o PAD H/o paraplegia H/o debility Plan: Arteriogram (pt refusing) Labs Wound care PT/OT Home meds Potassium replacement Consult palliative care, Kitty Gamino General diet as tolerated Cont breathing treatments Cont IV abx DVT ppx Comment Review of Relevant I have reviewed the following items pablo (where applicable) has been applied. Labs Laboratory Tests Test 01/23/18 15:35 01/23/18 15:50 01/23/18 19:45 01/24/18 05:17 Urine Collection Type U cath Urine Color Yellow Urine Clarity Turbid Urine pH 5.5 Urine Specific [place] 1.015 Urine Protein 30 mg/dL (NEG-TRACE) Urine Glucose (UA) Negative mg/dL (NEG) Urine Ketones (Stick) Negative mg/dL (NEG) Urine Blood Moderate (NEG) Urine Nitrite Positive (NEG) Urine Bilirubin Negative (NEG) Urine Urobilinogen Dipstick 1.0 mg/dL (0.2 mg/dL) Urine Leukocyte Esterase Large (NEG) Urine RBC 1-2 /HPF (0-2) Urine WBC Tntc /HPF (0-4) Urine Squamous Epithelial Cells Few /LPF Urine Bacteria Many /HPF (0-FEW) Lactic Acid Level 1.0 mmol/L (0.4-2.0) White Blood Count 16.1 x10^3/uL (4.0-11.0) 14.7 x10^3/uL (4.0-11.0) Red Blood Count 4.54 x10^6/uL (3.50-5.40) 3.70 x10^6/uL (3.50-5.40) Hemoglobin 12.4 g/dL (12.0-15.5) 10.0 g/dL (12.0-15.5) Hematocrit 37.3 % (36.0-47.0) 30.4 % (36.0-47.0) Mean Corpuscular Volume 82 fL (79-100) 82 fL (79-100) Mean Corpuscular Hemoglobin 27 pg (25-35) 27 pg (25-35) Mean Corpuscular Hemoglobin Concent 33 g/dL (31-37) 33 g/dL (31-37) Red Cell Distribution Width 19.2 % (11.5-14.5) 19.8 % (11.5-14.5) Platelet Count 265 x10^3/uL (140-400) 190 x10^3/uL (140-400) Neutrophils (%) (Auto) 78 % (31-73) 73 % (31-73) Lymphocytes (%) (Auto) 11 % (24-48) 13 % (24-48) Monocytes (%) (Auto) 11 % (0-9) 13 % (0-9) Eosinophils (%) (Auto) 0 % (0-3) 0 % (0-3) Basophils (%) (Auto) 0 % (0-3) 1 % (0-3) Neutrophils # (Auto) 12.5 x10^3uL (1.8-7.7) 10.7 x10^3uL (1.8-7.7) Lymphocytes # (Auto) 1.7 x10^3/uL (1.0-4.8) 2.0 x10^3/uL (1.0-4.8) Monocytes # (Auto) 1.8 x10^3/uL (0.0-1.1) 1.9 x10^3/uL (0.0-1.1) Eosinophils # (Auto) 0.0 x10^3/uL (0.0-0.7) 0.0 x10^3/uL (0.0-0.7) Basophils # (Auto) 0.1 x10^3/uL (0.0-0.2) 0.1 x10^3/uL (0.0-0.2) Sodium Level 141 mmol/L (136-145) 140 mmol/L (136-145) Potassium Level 3.7 mmol/L (3.5-5.1) 3.1 mmol/L (3.5-5.1) Chloride Level 102 mmol/L (98-107) 105 mmol/L (98-107) Carbon Dioxide Level 28 mmol/L (21-32) 29 mmol/L (21-32) Anion Gap 11 (6-14) 6 (6-14) Blood Urea Nitrogen 15 mg/dL (7-20) 13 mg/dL (7-20) Creatinine 1.2 mg/dL (0.6-1.0) 1.0 mg/dL (0.6-1.0) Estimated GFR (Cockcroft-Gault) 52.6 64.9 BUN/Creatinine Ratio 13 (6-20) Glucose Level 119 mg/dL (70-99) 131 mg/dL (70-99) Calcium Level 8.8 mg/dL (8.5-10.1) 8.0 mg/dL (8.5-10.1) Total Bilirubin 0.5 mg/dL (0.2-1.0) Aspartate Amino Transf (AST/SGOT) 13 U/L (15-37) Alanine Aminotransferase (ALT/SGPT) 13 U/L (14-59) Alkaline Phosphatase 139 U/L (46-116) Total Protein 8.1 g/dL (6.4-8.2) Albumin 3.6 g/dL (3.4-5.0) Albumin/Globulin Ratio 0.8 (1.0-1.7) Influenza Type A Antigen Negative (NEGATIVE) Influenza Type B Antigen Negative (NEGATIVE) Nasal Screen MRSA (PCR) Positive (Negative) Segmented Neutrophils % 66 % (35-66) Band Neutrophils % 6 % (0-9) Lymphocytes % 15 % (24-48) Monocytes % 13 % (0-10) Platelet Estimate Adequate (ADEQUATE) Anisocytosis Slight Test 01/24/18 17:20 Prothrombin Time 15.2 SEC (11.7-14.0) Prothromb Time International Ratio 1.3 (0.8-1.1) Activated Partial Thromboplast Time 38 SEC (24-38) Laboratory Tests Test 01/24/18 17:20 Prothrombin Time 15.2 SEC (11.7-14.0) Prothromb Time International Ratio 1.3 (0.8-1.1) Activated Partial Thromboplast Time 38 SEC (24-38) Medications Current Medications Acetaminophen (Tylenol) 1,000 mg 1X ONCE PO Last administered on 01/23/18at 16 :25; Start 01/23/18 at 16:00; Stop 01/23/18 at 16:01; Status DC Sodium Chloride 1,000 ml @ 100 mls/hr Q10H IV Last administered on 01/23/18at 16:25; Start 01/23/18 at 15:54; Stop 01/23/18 at 19:50; Status DC Ciprofloxacin/ Dextrose 200 ml @ 200 mls/hr Q12HR IV Last administered on at 06:01; Start 01/24/18 at 06:00; Stop 01/24/18 at 09:35; Status DC Meropenem 1 gm/ Sodium Chloride 100 ml @ 200 mls/hr Q12HR IV Last administered on 01/24/18at 21:30; Start 01/24/18 at 06:00 Vancomycin HCl 250 ml @ 250 mls/hr 1X ONCE IV ; Start 01/23/18 at 16:15; Stop 01/23/18 at 17:14; Status UNV Ciprofloxacin/ Dextrose 200 ml @ 200 mls/hr 1X ONCE IV Last administered on 01/23/18at 16:26; Start 01/23/18 at 16:15; Stop 01/23/18 at 17:14; Status DC Meropenem 1 gm/ Sodium Chloride 100 ml @ 200 mls/hr 1X ONCE IV Last administered on 01/23/18at 17:45; Start 01/23/18 at 16:15; Stop 01/23/18 at 16 :44; Status DC Vancomycin HCl 2 gm/Sodium Chloride 500 ml @ 250 mls/hr 1X ONCE IV Last administered on 01/23/18at 18:47; Start 01/23/18 at 16:15; Stop 01/23/18 at 18 :14; Status DC Acetaminophen (Tylenol) 650 mg PRN Q6HRS PRN PO MILD PAIN Last administered on 01/25/18at 01:41; Start 01/23/18 at 19:30 Tramadol HCl (Ultram) 50 mg PRN Q6HRS PRN PO MODERATE PAIN Last administered on 01/24/18at 21:30; Start 01/23/18 at 19:30 Acetaminophen/ Hydrocodone Bitart (Lortab 5/325) 1 tab PRN Q6HRS PRN PO SEVERE PAIN Last administered on 01/25/18at 09:35; Start 01/23/18 at 19:30 Ringer's Solution 1,000 ml @ 999 mls/hr 1X ONCE IV Last administered on 01/23at 19:53; Start 01/23/18 at 20:00; Stop 01/23/18 at 21:00; Status DC Ringer's Solution 1,000 ml @ 100 mls/hr Q10H IV Last administered on at 21:27; Start 01/23/18 at 21:00; Stop 01/24/18 at 06:38; Status DC Potassium Chloride/Sodium Chloride 1,000 ml @ 100 mls/hr Q10H IV Last administered on 01/24/18 16:03; Start 01/23/18 at 23:00 Ondansetron HCl (Zofran) 4 mg PRN Q6HRS PRN IV NAUSEA/VOMITING Last administered on 01/24/18at 15:53; Start 01/23/18 at 22:45 Acetaminophen (Tylenol) 650 mg PRN Q6HRS PRN PO Headaches, Temp > 101.5F; Start 01/23/18 at 22:45; Stop 01/24/18 at 07:02; Status DC Senna/Docusate Sodium (Senna Plus) 1 tab BID PO Last administered on 08:17; Start 01/24/18 at 09:00 Heparin Sodium (Porcine) (Heparin Sodium) 5,000 unit Q12HR SQ Last administered on 01/24/18 08:20; Start 01/24/18 at 09:00 Bisacodyl (Dulcolax Tab) 10 mg PRN DAILY PRN PO CONSTIPATION; Start 01/23/18 at 22:45 Buspirone HCl (Buspar) 5 mg DAILY PO Last administered on 01/25/18 09:34; Start 01/24/18 at 09:00 Lactobacillus Rhamnosus (Culturelle) 1 cap BID PO Last administered on 09:34; Start 01/24/18 at 09:00 Tamsulosin HCl (Flomax) 0.4 mg HS PO Last administered on 01/24/18at 21:00; Start 01/24/18 at 21:00 Acetaminophen/ Aspirin/Caffeine (Excedrin Migraine) 1 tab PRN Q6HRS PRN PO MIGRAINE HEADACHE Last administered on 01/24/18 08:16; Start 01/24/18 at 07: 15 Non-Formulary Medication (Menthol/Zinc Oxide (Calmoseptine Ointment)) 3.5 gm TID PRN TP SKIN PROTECTION; Start 01/23/18 at 22:45; Status UNV Polyethylene Glycol (miraLAX PACKET) 17 gm DAILY PO ; Start 01/24/18 at 09:00 Famotidine (Pepcid) 20 mg DAILY PO Last administered on 01/25/18 09:34; Start 01/24/18 at 09:00 Potassium Chloride (Klor-Con) 40 meq 1X ONCE PO Last administered on at 15:55; Start 01/24/18 at 16:00; Stop 01/24/18 at 16:01; Status DC Vancomycin HCl (Vanco Per Pharmacy) 1 each PRN DAILY PRN MC SEE COMMENTS Last administered on 01/24/18at 16:22; Start 01/24/18 at 16:30 Vancomycin HCl 1.25 gm/Sodium Chloride 250 ml @ 167 mls/hr Q24H IV Last administered on 01/24/18at 17:50; Start 01/24/18 at 18:00 Vancomycin HCl (Vancomycin Trough Level) 1 each 1X ONCE MC ; Start 01/25/18 at 17:30; Stop 01/25/18 at 17:31 Oxycodone HCl (Roxicodone) 22.5 mg PRN Q8HRS PRN PO PAIN; Start 01/25/18 at 00 :15 Lorazepam (Ativan) 0.5 mg 1X ONCE PO Last administered on 01/25/18at 09:34; Start 01/25/18 at 09:15; Stop 01/25/18 at 09:16; Status DC Risperidone (RisperDAL) 0.5 mg BID PO Last administered on 01/25/18at 09:34; Start 01/25/18 at 09:15 Active Scripts Active Culturelle (Lactobacillus Rhamnosus Gg) 1 Each Cap.sprink 1 Cap PO BID 14 Days Cefpodoxime Proxetil 100 Mg Tablet 200 Mg PO BID 10 Days Reported Oxycodone Hcl 15 Mg Tablet 1.5 Mg PO PRN Q8HRS PRN Calmoseptine Ointment (Menthol/Zinc Oxide) 3.5 Gm Oint.pack 3.5 Gm TP TID PRN Dulcolax (Bisacodyl) 5 Mg Tablet.dr 10 Mg ME PRN DAILY PRN Anacin 400-32 Mg Tablet (Aspirin/Caffeine) 1 Each Tablet 1 Each PO Q6HRS PRN Milk Of Magnesia (Magnesium Hydroxide) 400 Mg/5 Ml Oral.susp 400 Mg PO DAILY PRN Cyclobenzaprine Hcl 5 Mg Tablet 1 Tab PO QHS Senna-Docusate Sodium Tablet (Sennosides/Docusate Sodium) 1 Each Tablet 1 Each PO DAILY Zantac (Ranitidine Hcl) 150 Mg Tablet 150 Mg PO DAILY Xanax (Alprazolam) 0.25 Mg Tablet 1 Tab PO HS Furosemide 40 Mg Tablet 1 Tab PO DAILY Miralax (Polyethylene Glycol 3350) 17 Gm Powd.pack 1 Packet PO DAILY Tamsulosin Hcl 0.4 Mg Cap.er.24h 0.4 Mg PO HS Gabapentin 600 Mg Tablet 600 Mg PO BID Gabapentin 100 Mg Capsule 100 Mg PO HS Buspirone Hcl 5 Mg Tablet 5 Mg PO DAILY Vitals/I & O Vital Sign - Last 24 Hours 01/24/18 01/24/18 01/24/18 01/24/18 15:55 16:55 19:20 20:00 Temp 99.9 99.9 Pulse 76 Resp 12 18 B/P (MAP) 173/96 (121) Pulse Ox 98 O2 Delivery Nasal Cannula Room Air Nasal Cannula O2 Flow Rate 2.0 2.0 2.0 01/24/18 01/24/18 01/24/18 01/24/18 21:30 22:16 22:31 22:43 Temp 100.6 100.6 Pulse 85 Resp 18 B/P (MAP) 147/91 (109) Pulse Ox 97 O2 Delivery Room Air Room Air Room Air Nasal Cannula O2 Flow Rate 2.0 01/24/18 01/25/18 01/25/18 01/25/18 23:15 03:17 07:00 07:30 Temp 98.5 98.1 98.5 98.1 Pulse 76 81 Resp 18 16 B/P (MAP) 148/73 (98) 174/90 (118) Pulse Ox 97 96 O2 Delivery Room Air Room Air Nasal Cannula Room Air O2 Flow Rate 2.0 01/25/18 01/25/18 09:35 11:00 Temp 98.1 98.1 Pulse 71 Resp 16 B/P (MAP) 164/89 (114) Pulse Ox 100 O2 Delivery Room Air Room Air Intake and Output 01/24/18 01/24/18 01/25/18 15:00 23:00 07:00 Intake Total 0 ml 830 ml 0 ml Output Total 1000 ml 300 ml Balance 0 ml -170 ml -300 ml TIERA SALAZAR III, DO Jan 25, 2018 15:22
--- NOTE | 2018-01-25 15:31 | RAD ---
MR of the right hindfoot HISTORY: Calcaneal osteomyelitis. Posterior heel open ulcer. TECHNIQUE: Routine multiplanar sequences are obtained. FINDINGS: Soft tissue defect at the posterior, medial heel compatible with the patient's ulcer. There is soft tissue edema subjacent to the defect. The tissue contacts the cortex of the calcaneus, but there is no evidence of underlying bone destruction or acute bone marrow edema to suggest acute osteomyelitis at this time. Severe muscle atrophy and intramuscular edema about the heel. Mild subcutaneous edema. No organized fluid collection or drainable abscess. Large enthesophyte at the calcaneal attachment of the Achilles tendon with mild chronic insertional tendinosis. No acute plantar fasciitis. Tarsal sinus intact. Small tibiotalar and subtalar joint effusions, indeterminate for sterile or infected content. No acute disruption of the visualized tendons. Note that the anterior talofibular ligament is poorly defined, could be due to a chronic tear. IMPRESSION: 1. There is a soft tissue ulcer at the posterior medial heel. Although the abnormal tissue contacts the calcaneal cortex, no convincing evidence of acute osteomyelitis is seen at this time although the patient is considered at risk. 2. Generalized cellulitis/myositis. No evidence of drainable abscess. 3. Small tibiotalar and subtalar joint effusions of uncertain sterility. Electronically signed by: Pedro Villarreal MD (01/25/2018 3:28 PM) [facility]
[2018-01-25] MEDS ORDERED: POTASSIUM CHLORIDE 20 MEQ TABLET.ER. PO ONE (16:00)
--- NOTE | 2018-01-25 16:09 | PDOC2 ---
PALLIATIVE CARE Palliative Care Note Palliative Care consult requested by Dr. Epps to address detention goals of care Medical Assessment per medical record Sepsis, likely 2/2 ulcer vs UTI Altered mental status, likely encephalopathy 2/2 metabolic/sepsis and possible baseline dementia acutely worsened Right heel ulcer Sacral decubitus ulcer Acute hypoxia Acute hypokalemia Dysuria/frequent UTIs H/o HTN H/o emphysema H/o COPD H/o PAD H/o paraplegia H/o debility Patient in MRI when attempting to see her. Will arrange family meeting as soon as family can be reached. MARY BANG Jan 25, 2018 16:08
[2018-01-25] MEDS: VANCOMYCIN 1.25 GM in IV NORMAL SALINE 250ML 250 ML IV SCH (18:00)
[2018-01-25 19:30] VITALS: BP 168/91
[2018-01-25] MEDS: TAMSULOSIN 0.4 MG CAP.ER.24H. PO SCH (21:34)
[2018-01-25 22:50] VITALS: BP 160/84
[2018-01-26 03:48] VITALS: BP 139/101
[2018-01-26] MEDS: MEROPENEM 1 GM in IV NORMAL SALINE 100ML 100 ML IV SCH (06:00)
[2018-01-26 07:00] VITALS: BP 161/91
--- NOTE | 2018-01-26 08:19 | PDOC ---
GENERAL General: Patient seen bedside eating breakfast. She denies pain to foot. She denies nausea, vomitting, fever, chills. Patient refuses offload boots "except for at night". She states she "has not refused arteriogram she told them she wanted to think about it and she is still thinking about it " Lower extremity exam: note dressing clean, dry, intact to right foot. compartments soft. No crepitus Note heel not properly offloaded in current position-added pillow under her ankle to further offload. VITAL SIGNS Vital Signs: Vital Signs Date Time Temp Pulse Resp B/P (MAP) Pulse Ox O2 Delivery O2 Flow Rate FiO2 01/26/18 03:48 98.5 80 16 139/101 (114) 98 Room Air 98.5 01/25/18 22:34 2.0 I & O I & O Intake and Output 01/26/18 07:00 Intake Total 300 ml Output Total 2000 ml Balance -1700 ml Intake Oral 300 ml Output Urine Total 2000 ml # Voids 2 ALLERGIES Allergies: Allergies Coded Allergies Type Severity Reaction Last Updated Verified Penicillins Allergy Intermediate HAS TOLERATED CEFTRIAXONE 08/05/17 Yes I S O L A T I O N *CONTACT* Allergy Unknown 07/21/16 Yes MEDS Medications: Current Medications Medications (Trade) Dose Ordered Sig/Kp Start Time Stop Time Status Last Admin Dose Admin Acetaminophen (Tylenol) 650 mg PRN Q6HRS PRN 01/23/18 22:45 01/24/18 07:02 DC Acetaminophen/ Aspirin/Caffeine (Excedrin Migraine) 1 tab PRN Q6HRS PRN 01/24/18 07:15 01/24/18 08:16 1 TAB Acetaminophen/ Hydrocodone Bitart (Lortab 5/325) 1 tab PRN Q6HRS PRN 01/23/18 19:30 01/25/18 21:34 1 TAB Bisacodyl (Dulcolax Tab) 10 mg PRN DAILY PRN 01/23/18 22:45 Buspirone HCl (Buspar) 5 mg DAILY 01/24/18 09:00 01/25/18 09:34 5 MG Ciprofloxacin/ Dextrose 200 ml @ 200 mls/hr 1X ONCE 01/23/18 16:15 01/23/18 17:14 DC 01/23/18 16:26 200 MLS/HR Famotidine (Pepcid) 20 mg DAILY 01/24/18 09:00 01/25/18 09:34 20 MG Heparin Sodium (Porcine) (Heparin Sodium) 5,000 unit Q12HR 01/24/18 09:00 01/24/18 08:20 5,000 UNIT Lactobacillus Rhamnosus (Culturelle) 1 cap BID 01/24/18 09:00 01/25/18 09:34 1 CAP Lorazepam (Ativan) 0.5 mg 1X ONCE 01/25/18 09:15 01/25/18 09:16 DC 01/25/18 09:34 0.5 MG Meropenem 1 gm/ Sodium Chloride 100 ml @ 200 mls/hr Q8HRS 01/25/18 22:00 Non-Formulary Medication (Menthol/Zinc Oxide (Calmoseptine Ointment)) 3.5 gm TID PRN 01/23/18 22:45 UNV Ondansetron HCl (Zofran) 4 mg PRN Q6HRS PRN 01/23/18 22:45 01/24/18 15:53 4 MG Oxycodone HCl (Roxicodone) 22.5 mg PRN Q8HRS PRN 01/25/18 00:15 Polyethylene Glycol (miraLAX PACKET) 17 gm DAILY 01/24/18 09:00 Potassium Chloride/Sodium Chloride 1,000 ml @ 100 mls/hr Q10H 01/23/18 23:00 01/24/18 16:03 100 MLS/HR Potassium Chloride (Klor-Con) 40 meq 1X ONCE 01/25/18 16:00 01/25/18 16:01 DC 01/25/18 17:24 40 MEQ Ringer's Solution 1,000 ml @ 100 mls/hr Q10H 01/23/18 21:00 01/24/18 06:38 DC 01/23/18 21:27 100 MLS/HR Risperidone (RisperDAL) 0.5 mg BID 01/25/18 09:15 01/25/18 21:35 0.5 MG Senna/Docusate Sodium (Senna Plus) 1 tab BID 01/24/18 09:00 01/24/18 08:17 1 TAB Sodium Chloride 1,000 ml @ 100 mls/hr Q10H 01/23/18 15:54 01/23/18 19:50 DC 01/23/18 16:25 100 MLS/HR Tamsulosin HCl (Flomax) 0.4 mg HS 01/24/18 21:00 01/25/18 21:34 0.4 MG Tramadol HCl (Ultram) 50 mg PRN Q6HRS PRN 01/23/18 19:30 01/24/18 21:30 50 MG Vancomycin HCl (Vanco Per Pharmacy) 1 each PRN DAILY PRN 01/24/18 16:30 01/24/18 16:22 1 EACH Vancomycin HCl (Vancomycin Trough Level) 1 each 1X ONCE 01/25/18 17:30 01/25/18 17:31 DC Vancomycin HCl 1.25 gm/Sodium Chloride 250 ml @ 167 mls/hr Q24H 01/24/18 18:00 01/24/18 17:50 167 MLS/HR Vancomycin HCl 2 gm/Sodium Chloride 500 ml @ 250 mls/hr 1X ONCE 01/23/18 16:15 01/23/18 18:14 DC 01/23/18 18:47 250 MLS/HR IMAGING Imaging: MRI right foot: no definitive osteomyelitis of calcaneus ASSESSMENT & PLAN A&P 77 year old female with peripheral vascular disease, decubitus ulceration right heel -Patient "still thinking" about whether to proceed with aortogram. Discussed with patient the need for increased blood flow to right heel for healing. Discussed this may also be done as an outpatient if she changes her mind at a later date -Recommend begin [employer] wound vac to right heel at this time to stimulate granulation tissue, granulofoam dressing at 125mmHg change 3x/week -Patient may follow up with [facility] wound care or with myself upon discharge. -REcommend strict decubitus precautions -Continue antibiotics per ID recommendations -Will consider application of allograft as outpatient -Will sign off - ANNA GREEN DPM Jan 26, 2018 08:19
[2018-01-26] MEDS: POLYETHYLENE GLYCOL 3350 17 GM PACKET. PO SCH (09:00)
[2018-01-26] MEDS: busPIRone 5 MG TABLET. PO SCH (09:31)
[2018-01-26] MEDS: risperiDONE 1 MG TABLET. PO SCH (09:31)
[2018-01-26] MEDS: SENNOSIDES/DOCUSATE 8.6/50MG TABLET. PO SCH (09:31)
[2018-01-26] MEDS: FAMOTIDINE 20 MG TABLET. PO SCH (09:31)
[2018-01-26] MEDS: HYDROcodone/APAP 5/325MG 1 TAB TABLET PO PRN (09:32)
[2018-01-26] MEDS: LACTOBACILLUS RHAMNOSUS GG 1 CAPSULE. PO SCH (09:32)
--- NOTE | 2018-01-26 09:32 | PDOC ---
PROGRESS NOTES Chief Complaint Chief Complaint Right heel ulcer Sepsis Altered mental status Sacral decubitus ulcer Dysuria/frequent UTIs H/o HTN H/o emphysema H/o COPD H/o PAD H/o paraplegia H/o debility History of Present Illness History of Present Illness Pt seen and examined while sleeping in bed Discussed w/RN Discussed w/Dr. Webber Both RN and Dr. Webber stated that pt continues to refuse all treatment Vitals Vitals Vital Signs Date Time Temp Pulse Resp B/P (MAP) Pulse Ox O2 Delivery O2 Flow Rate FiO2 01/26/18 03:48 98.5 80 16 139/101 (114) 98 Room Air 98.5 01/25/18 22:34 2.0 Physical Exam Physical Exam HEENT: Anicteric Neck: Supple, no JVP, no lymphadenopathy General: No acute distress, Other (pt was asleep during visit ) Heart: Regular rate, Normal S1, Normal S2 Lungs: Clear Abdomen: Normal bowel sounds, Soft Extremities: Other (1-2+ pitting edema of RLE. No warmth or erythema noted. Right calcaneal wound bandage was clean, dry and intact) Skin: Other (Right heel ulceration. Sacral/coccyx region with multiple open ulcerations ) Review of Systems Review of Systems Pt was asleep in bed and unable to answer questions Pt appeared to be resting comfortably and in no distress Assessment and Plan Assessmemt and Plan Problems Medical Problems: (1) Decubitus ulcer Status: Acute (2) Sepsis Status: Acute Assessment: Right heel ulcer Sepsis Altered mental status Sacral decubitus ulcer Dysuria/frequent UTIs H/o HTN H/o emphysema H/o COPD H/o PAD H/o paraplegia H/o debility Plan: Pt continues to refuse all care Possible d/cm later today Palliative care continuing to reach family to discuss prison care goals Labs Wound care PT/OT DVT ppx Comment Review of Relevant I have reviewed the following items pablo (where applicable) has been applied. Labs Laboratory Tests Test 01/24/18 17:20 Prothrombin Time 15.2 SEC (11.7-14.0) Prothromb Time International Ratio 1.3 (0.8-1.1) Activated Partial Thromboplast Time 38 SEC (24-38) Medications Current Medications Acetaminophen (Tylenol) 1,000 mg 1X ONCE PO Last administered on 01/23/18at 16 :25; Start 01/23/18 at 16:00; Stop 01/23/18 at 16:01; Status DC Sodium Chloride 1,000 ml @ 100 mls/hr Q10H IV Last administered on 01/23/18at 16:25; Start 01/23/18 at 15:54; Stop 01/23/18 at 19:50; Status DC Ciprofloxacin/ Dextrose 200 ml @ 200 mls/hr Q12HR IV Last administered on at 06:01; Start 01/24/18 at 06:00; Stop 01/24/18 at 09:35; Status DC Meropenem 1 gm/ Sodium Chloride 100 ml @ 200 mls/hr Q12HR IV Last administered on 01/24/18at 21:30; Start 01/24/18 at 06:00; Stop 01/25/18 at 16 :54; Status DC Vancomycin HCl 250 ml @ 250 mls/hr 1X ONCE IV ; Start 01/23/18 at 16:15; Stop 01/23/18 at 17:14; Status UNV Ciprofloxacin/ Dextrose 200 ml @ 200 mls/hr 1X ONCE IV Last administered on 01/23/18at 16:26; Start 01/23/18 at 16:15; Stop 01/23/18 at 17:14; Status DC Meropenem 1 gm/ Sodium Chloride 100 ml @ 200 mls/hr 1X ONCE IV Last administered on 01/23/18at 17:45; Start 01/23/18 at 16:15; Stop 01/23/18 at 16 :44; Status DC Vancomycin HCl 2 gm/Sodium Chloride 500 ml @ 250 mls/hr 1X ONCE IV Last administered on 01/23/18at 18:47; Start 01/23/18 at 16:15; Stop 01/23/18 at 18 :14; Status DC Acetaminophen (Tylenol) 650 mg PRN Q6HRS PRN PO MILD PAIN Last administered on 01/25/18at 01:41; Start 01/23/18 at 19:30 Tramadol HCl (Ultram) 50 mg PRN Q6HRS PRN PO MODERATE PAIN Last administered on 01/24/18at 21:30; Start 01/23/18 at 19:30 Acetaminophen/ Hydrocodone Bitart (Lortab 5/325) 1 tab PRN Q6HRS PRN PO SEVERE PAIN Last administered on 01/25/18 21:34; Start 01/23/18 at 19:30 Ringer's Solution 1,000 ml @ 999 mls/hr 1X ONCE IV Last administered on 01/23at 19:53; Start 01/23/18 at 20:00; Stop 01/23/18 at 21:00; Status DC Ringer's Solution 1,000 ml @ 100 mls/hr Q10H IV Last administered on at 21:27; Start 01/23/18 at 21:00; Stop 01/24/18 at 06:38; Status DC Potassium Chloride/Sodium Chloride 1,000 ml @ 100 mls/hr Q10H IV Last administered on 01/24/18at 16:03; Start 01/23/18 at 23:00 Ondansetron HCl (Zofran) 4 mg PRN Q6HRS PRN IV NAUSEA/VOMITING Last administered on 01/24/18at 15:53; Start 01/23/18 at 22:45 Acetaminophen (Tylenol) 650 mg PRN Q6HRS PRN PO Headaches, Temp > 101.5F; Start 01/23/18 at 22:45; Stop 01/24/18 at 07:02; Status DC Senna/Docusate Sodium (Senna Plus) 1 tab BID PO Last administered on at 08:17; Start 01/24/18 at 09:00 Heparin Sodium (Porcine) (Heparin Sodium) 5,000 unit Q12HR SQ Last administered on 01/24/18at 08:20; Start 01/24/18 at 09:00 Bisacodyl (Dulcolax Tab) 10 mg PRN DAILY PRN PO CONSTIPATION; Start 01/23/18 at 22:45 Buspirone HCl (Buspar) 5 mg DAILY PO Last administered on 01/25/18 09:34; Start 01/24/18 at 09:00 Lactobacillus Rhamnosus (Culturelle) 1 cap BID PO Last administered on 09:34; Start 01/24/18 at 09:00 Tamsulosin HCl (Flomax) 0.4 mg HS PO Last administered on 01/25/18at 21:34; Start 01/24/18 at 21:00 Acetaminophen/ Aspirin/Caffeine (Excedrin Migraine) 1 tab PRN Q6HRS PRN PO MIGRAINE HEADACHE Last administered on 01/24/18at 08:16; Start 01/24/18 at 07: 15 Non-Formulary Medication (Menthol/Zinc Oxide (Calmoseptine Ointment)) 3.5 gm TID PRN TP SKIN PROTECTION; Start 01/23/18 at 22:45; Status UNV Polyethylene Glycol (miraLAX PACKET) 17 gm DAILY PO ; Start 01/24/18 at 09:00 Famotidine (Pepcid) 20 mg DAILY PO Last administered on 01/25/18at 09:34; Start 01/24/18 at 09:00 Potassium Chloride (Klor-Con) 40 meq 1X ONCE PO Last administered on at 15:55; Start 01/24/18 at 16:00; Stop 01/24/18 at 16:01; Status DC Vancomycin HCl (Vanco Per Pharmacy) 1 each PRN DAILY PRN MC SEE COMMENTS Last administered on 01/24/18at 16:22; Start 01/24/18 at 16:30 Vancomycin HCl 1.25 gm/Sodium Chloride 250 ml @ 167 mls/hr Q24H IV Last administered on 01/24/18at 17:50; Start 01/24/18 at 18:00 Vancomycin HCl (Vancomycin Trough Level) 1 each 1X ONCE MC ; Start 01/25/18 at 17:30; Stop 01/25/18 at 17:31; Status DC Oxycodone HCl (Roxicodone) 22.5 mg PRN Q8HRS PRN PO BREAKTHROUGH PAIN; Start 01/25/18 at 00:15 Lorazepam (Ativan) 0.5 mg 1X ONCE PO Last administered on 01/25/18at 09:34; Start 01/25/18 at 09:15; Stop 01/25/18 at 09:16; Status DC Risperidone (RisperDAL) 0.5 mg BID PO Last administered on 01/25/18at 21:35; Start 01/25/18 at 09:15 Potassium Chloride (Klor-Con) 40 meq 1X ONCE PO Last administered on at 17:24; Start 01/25/18 at 16:00; Stop 01/25/18 at 16:01; Status DC Meropenem 1 gm/ Sodium Chloride 100 ml @ 200 mls/hr Q8HRS IV ; Start 01/25/18 at 22:00 Active Scripts Active Culturelle (Lactobacillus Rhamnosus Gg) 1 Each Cap.sprink 1 Cap PO BID 14 Days Cefpodoxime Proxetil 100 Mg Tablet 200 Mg PO BID 10 Days Reported Oxycodone Hcl 15 Mg Tablet 1.5 Mg PO PRN Q8HRS PRN Calmoseptine Ointment (Menthol/Zinc Oxide) 3.5 Gm Oint.pack 3.5 Gm TP TID PRN Dulcolax (Bisacodyl) 5 Mg Tablet.dr 10 Mg NC PRN DAILY PRN Anacin 400-32 Mg Tablet (Aspirin/Caffeine) 1 Each Tablet 1 Each PO Q6HRS PRN Milk Of Magnesia (Magnesium Hydroxide) 400 Mg/5 Ml Oral.susp 400 Mg PO DAILY PRN Cyclobenzaprine Hcl 5 Mg Tablet 1 Tab PO QHS Senna-Docusate Sodium Tablet (Sennosides/Docusate Sodium) 1 Each Tablet 1 Each PO DAILY Zantac (Ranitidine Hcl) 150 Mg Tablet 150 Mg PO DAILY Xanax (Alprazolam) 0.25 Mg Tablet 1 Tab PO HS Furosemide 40 Mg Tablet 1 Tab PO DAILY Miralax (Polyethylene Glycol 3350) 17 Gm Powd.pack 1 Packet PO DAILY Tamsulosin Hcl 0.4 Mg Cap.er.24h 0.4 Mg PO HS Gabapentin 600 Mg Tablet 600 Mg PO BID Gabapentin 100 Mg Capsule 100 Mg PO HS Buspirone Hcl 5 Mg Tablet 5 Mg PO DAILY Vitals/I & O Vital Sign - Last 24 Hours 01/25/18 01/25/18 01/25/18 01/25/18 09:35 11:00 15:00 19:30 Temp 98.1 97.9 99.0 98.1 97.9 99.0 Pulse 71 82 86 Resp 16 16 18 B/P (MAP) 164/89 (114) 129/70 (89) 168/91 (116) Pulse Ox 100 95 99 O2 Delivery Room Air Room Air Room Air Room Air 01/25/18 01/25/18 01/25/18 01/25/18 20:22 21:34 22:34 22:50 Temp 99.0 99.0 Pulse 71 Resp 18 18 16 B/P (MAP) 160/84 (109) Pulse Ox 99 99 96 O2 Delivery Room Air Room Air Room Air Room Air O2 Flow Rate 2.0 2.0 2.0 01/26/18 03:48 Temp 98.5 98.5 Pulse 80 Resp 16 B/P (MAP) 139/101 (114) Pulse Ox 98 O2 Delivery Room Air Intake and Output 01/25/18 01/25/18 01/26/18 15:00 23:00 07:00 Intake Total 0 ml 200 ml 100 ml Output Total 1200 ml 800 ml Balance 0 ml -1000 ml -700 ml TIERA SALAZAR III DO Jan 26, 2018 09:32
[2018-01-26] MEDS: HEPARIN for SUB-Q USE 5,000 UNIT/ML VIAL. SQ SCH (09:36)
--- NOTE | 2018-01-26 09:57 | PDOC ---
Infectious Disease Note Subjective Subjective pt is agitated at times, wants to go home, refusing everything, ROS ROS no n/v/d/sob Vital Sign Vital Signs Vital Signs Date Time Temp Pulse Resp B/P (MAP) Pulse Ox O2 Delivery O2 Flow Rate FiO2 01/26/18 09:32 Room Air 01/26/18 07:00 80 16 161/91 (114) 94 01/26/18 03:48 98.5 98.5 01/25/18 22:34 2.0 Physical Exam PHYSICAL EXAM GENERAL: Alert and oriented female, not in any distress. VITAL SIGNS: Stable HEENT: Anicteric. NECK: Supple, no JVP, no lymphadenopathy. LUNGS: Clear. HEART: S1, S2 regular. ABDOMEN: Benign. EXTREMITIES: She cannot use at all any much of lower extremity other than the very slight foot movement she can do. She does have a right calcaneal wound, which is a black eschar softening up. Sacral breakdown is very minor skin breakdown. Labs Lab MRI 1. There is a soft tissue ulcer at the posterior medial heel. Although the abnormal tissue contacts the calcaneal cortex, no convincing evidence of acute osteomyelitis is seen at this time although the patient is considered at risk. 2. Generalized cellulitis/myositis. No evidence of drainable abscess. 3. Small tibiotalar and subtalar joint effusions of uncertain sterility. Objective Assessment Rt calcaneal ulcer,, after eschar removal is almost to bone as per wound care [employer] Fever UTI Sacral decub Debility Paraplegia PAD Plan Plan of Care pt is refusing everything, MRI is close but bone not infected, d/w pt about picc , she does not want vanc and meropenem,, change to cipro and doxy, off load, and d/c ok d/w Dr Supriya JOHNSTON,HUMBERTO Roldan MD Jan 26, 2018 09:57
--- NOTE | 2018-01-26 11:50 | DISCH ---
DISCHARGE DISCHARGE INFORMATION: FINAL DIAGNOSIS Problems Medical Problems: (1) Decubitus ulcer Status: Acute (2) Sepsis Status: Acute CONDITION ON DISCHARGE: Stable CODE STATUS: Code Status: Full [facility] STAY <30 DAYS: Yes POST DISCHARGE ORDERS: ACTIVITY ORDERS: Activity as tolerated WEIGHT BEARING STATUS: As tolerated WOUND/INCISION CARE: Other, see below OTHER WOUND INSTRUCTIONS: Wound care TREATMENT/EQUIPMENT ORDERS: ADAPTIVE EQUIPMENT NEEDED: None DISCHARGE MEDICATIONS: Home Meds Active Scripts Lactobacillus Rhamnosus Gg (CULTURELLE) 1 Each Cap.sprink, 1 CAP PO BID for 14 Days, #28 CAP Prov:AVTAR CASTANEDA MD 08/11/17 Cefpodoxime Proxetil (CEFPODOXIME PROXETIL) 100 Mg Tablet, 200 MG PO BID for 10 Days, #40 TAB Prov:AVTAR CASTANEDA MD 08/11/17 Reported Medications Oxycodone Hcl (OXYCODONE HCL) 15 Mg Tablet, 1.5 MG PO PRN Q8HRS PRN for PAIN, TAB 0 Refills 01/25/18 Menthol/Zinc Oxide (CALMOSEPTINE OINTMENT) 3.5 Gm Oint.pack, 3.5 GM TP TID PRN for SKIN PROTECTION, MISC 07/22/17 Bisacodyl (DULCOLAX) 5 Mg Tablet.dr, 10 MG NM PRN DAILY PRN for CONSTIPATION, TAB 0 Refills 07/22/17 Aspirin/Caffeine (ANACIN 400-32 MG TABLET) 1 Each Tablet, 1 EACH PO Q6HRS PRN for PAIN, TAB 07/22/17 Magnesium Hydroxide (MILK OF MAGNESIA) 400 Mg/5 Ml Oral.susp, 400 MG PO DAILY PRN for CONSTIPATION, MISC 07/22/17 Cyclobenzaprine Hcl (CYCLOBENZAPRINE HCL) 5 Mg Tablet, 1 TAB PO QHS, #30 TAB 18 Sennosides/Docusate Sodium (SENNA-DOCUSATE SODIUM TABLET) 1 Each Tablet, 1 EACH PO DAILY, TAB 07/22/17 Ranitidine Hcl (ZANTAC) 150 Mg Tablet, 150 MG PO DAILY, TAB 07/22/17 Alprazolam (XANAX) 0.25 Mg Tablet, 1 TAB PO HS, #30 TAB 07/22/17 Furosemide (FUROSEMIDE) 40 Mg Tablet, 1 TAB PO DAILY, #30 TAB 5 Refills 07/22/17 Polyethylene Glycol 3350 (MIRALAX) 17 Gm Powd.pack, 1 PACKET PO DAILY, #30 PACKET 3 Refills 07/22/17 Tamsulosin Hcl (TAMSULOSIN HCL) 0.4 Mg Cap.er.24h, 0.4 MG PO HS, TAB 07/22/17 Gabapentin (GABAPENTIN) 600 Mg Tablet, 600 MG PO BID, TAB 07/22/17 Gabapentin (GABAPENTIN) 100 Mg Capsule, 100 MG PO HS, CAP 07/22/17 Buspirone Hcl (BUSPIRONE HCL) 5 Mg Tablet, 5 MG PO DAILY, TAB 07/22/17 TIERA SALAZAR III DO Jan 26, 2018 11:50
[2018-01-26] MEDS ORDERED: DOXYCYCLINE HYCLATE 100 MG TABLET PO SCH (21:00)
[2018-01-26] MEDS ORDERED: CIPROFLOXACIN HCL 250 MG TABLET. PO SCH (21:00)
== END 2018-01-26 16:00 | disposition home or self-care (01) | DRG 871 ==
LOC: ER 15:17 → 4 NORTH 17:10
PROVIDERS: ADMIT Internal Medicine; ATTEND Internal Medicine
PROC: 0HBMXZZ Excision of Right Foot Skin, External Approach (ICD-10-PCS; principal; 2018-01-24)
DX: A41.9 Sepsis, unspecified organism (principal); G93.41 Metabolic encephalopathy; G82.20 Paraplegia, unspecified; N39.0 Urinary tract infection, site not specified; L89.152 Pressure ulcer of sacral region, stage 2; E87.6 Hypokalemia; F03.90 Unspecified dementia, unspecified severity, without behavioral disturbance, psychotic disturbance, mood disturbance, and anxiety; I10 Essential (primary) hypertension; I73.9 Peripheral vascular disease, unspecified; F32.9 Major depressive disorder, single episode, unspecified; F41.9 Anxiety disorder, unspecified; G89.29 Other chronic pain; M19.90 Unspecified osteoarthritis, unspecified site; J44.9 Chronic obstructive pulmonary disease, unspecified; K21.9 Gastro-esophageal reflux disease without esophagitis; L89.610 Pressure ulcer of right heel, unstageable; R09.02 Hypoxemia; Z74.01 Bed confinement status; Z82.49 Family history of ischemic heart disease and other diseases of the circulatory system; Z87.440 Personal history of urinary (tract) infections; Z79.899 Other long term (current) drug therapy; Z88.0 Allergy status to penicillin
CPT/HCPCS: 36415; 71045; 73630; 73718; 80048; 80053; 81001; 83605; 85007; 85025; 85610; 85730; 87070; 87086; 87186; 87641; 87804; 93005; 93923; 96365; 96367; J0744; J1644; J2185; J2405; J3370; J7030; J7040; J7050; J7120; 99285-25